=== PATIENT | male | born 1955 | race African-American/Black ===

== ENCOUNTER 2019-12-29 16:26 | Inpatient (IN) | payer OTHER, MEDICARE ==
[~2019-12-29] VITALS: Ht 177.8 cm; Wt 67.1 kg
--- NOTE | 2019-12-29 | NUR ---
Admitted a 64 yr old male from [facility] with admitting diagnosis of acute CVA. History: HTN, hyponatremia, depression. Patient arrived on the unit at 2200 by vitarpatricia. Condition stable. AAO x4 No acute distress or SOB was noted. vitals signs WNL on room air. Notified DR. Cline for admitting orders and DR. Hopson for medication reconciliation. Completed the admission work including taking history, initial assessment, physical assessment, process plan. Skin intact. Right arm weakness noted and right leg WNL. Needs attended. Continent of bowel and bladder. Assisted patient with front wheel walker to bathroom, steady gait noted. BM noted this shift,Diarrhea. Fall precautions maintained. Siderails up x2 for safety, bed in locked and low position, bed alarm on. Educated patient to use the call light. Call light and frequently using items within reach. Continue to monitor.
[2019-12-29] MEDS ORDERED: Z GUARD REMEDY PASTE 57 GM TUBE TOP PRN (22:15)
[2019-12-29] MEDS ORDERED: ACET160E61 PO (22:42)
[2019-12-29] MEDS ORDERED: ASPI-605 PO (22:43)
[2019-12-29] MEDS ORDERED: ATOR20TA PO (22:44)
[2019-12-29] MEDS ORDERED: BENZ0.5T43 PO (22:46)
[2019-12-29] MEDS ORDERED: HYDR-4075 PO (22:47)
[2019-12-29] MEDS ORDERED: LORA2ORA5 PO (22:49)
[2019-12-29] MEDS ORDERED: MAG30ORA2 PO (22:51)
[2019-12-29] MEDS ORDERED: MAGN400O6 PO (22:52)
[2019-12-29] MEDS ORDERED: NUT.237L67 PO (22:54)
[2019-12-29] MEDS ORDERED: PANT40TA4 PO (22:55)
[2019-12-29] MEDS ORDERED: RISP0.5T20 PO (22:56)
[2019-12-29 23:17] VITALS: BP 145/95
[2019-12-29] MEDS ORDERED: hydrALAZINE HCL 10 MG TABLET PO PRN (23:30)
[2019-12-30 04:35] VITALS: BP 156/91
--- NOTE | 2019-12-30 06:49 | NUR ---
Patient slept well, no significant event to report. No signs of distress, patient denies any discomfort at this time. Needs attended to promptly. Provided snack and drinks as per request Patient is continent, using the urinal.No complaints presented during shift. Fall precautions and safety measure maintained. Call stoddard within reach, bed alarm on. Will endorse report to next shift. Continue plan of care.
[2019-12-30 08:00] VITALS: BP 127/94
[2019-12-30] MEDS: MAGNESIUM HYDROXIDE 30 ML LIQUID UDC PO SCH ×2 (09:20→20:22)
[2019-12-30] MEDS: risperiDONE 0.5 MG TABLET PO SCH ×2 (09:20→16:23)
[2019-12-30] MEDS: ASPIRIN EC 81 MG TABLET.DR PO SCH (09:21)
[2019-12-30] MEDS: BENZTROPINE MESYLATE 0.5 MG TABLET PO SCH ×2 (09:21→16:23)
[2019-12-30] MEDS: NEPRO (VANILLA) 237 ML CAN PO SCH ×2 (09:22→16:24)
[2019-12-30] MEDS: PANTOPRAZOLE SODIUM 40 MG TABLET.DR PO SCH (09:25)
[2019-12-30] MEDS ORDERED: LORAZEPAM 0.5 MG TABLET PO PRN ×2 (13:15→13:27)
[2019-12-30 16:00] VITALS: BP 132/87
--- NOTE | 2019-12-30 16:02 | NUR ---
patient is calm comfortable, no distress noted, participated in PT, OT services, tolerated well, independent in positioning, uses bathroom privileges, needs attended timely
[2019-12-30] MEDS: ATORVASTATIN 20 MG TABLET PO SCH (20:23)
[2019-12-30 20:57] VITALS: BP 127/80
[2019-12-31 05:40] VITALS: BP 122/86
[2019-12-31] MEDS: PANTOPRAZOLE SODIUM 40 MG TABLET.DR PO SCH (06:30)
[2019-12-31 06:41] LABS: BASOPHILS % (AUTO) 0.5 % (0.0-2.0); EOSINOPHILS # (AUTO) 0.2 K/uL (0.0-0.7); EOSINOPHILS % (AUTO) 2.3 % (0.0-7.0); HEMATOCRIT 27.7 % (36.7-47.1); HEMOGLOBIN 9.3 g/dL (12.5-16.3); LYMPHOCYTES # (AUTO) 1.9 K/uL (20.0-40.0); LYMPHOCYTES % (AUTO) 23.5 % (20.5-51.5); MEAN CORPUSCULAR HGB CONC 34 g/dL (32.5-36.3); MEAN CORPUSCULAR VOLUME 80.7 fL (73.0-96.2); MONOCYTES % (AUTO) 12.6 % (0.0-11.0); NEUTROPHILS # (AUTO) 4.9 K/uL (1.8-8.9); NEUTROPHILS % (AUTO) 61.1 % (38.5-71.5); PLATELET COUNT (AUTO) 243 K/uL (152-348); RED BLOOD CELL COUNT(AUTO) 3.42 MIL/uL (4.06-5.63)
[2019-12-31 06:53] LABS: CREATININE 1.2 mg/dL (0.6-1.3); PHOSPHOROUS 3.2 mg/dL (2.5-4.9); POTASSIUM 3.4 mmol/L (3.5-5.1)
[2019-12-31 07:30] VITALS: BP 132/93
[2019-12-31] MEDS ORDERED: POTASSIUM CHLORIDE 20 MEQ TAB.PRT.SR PO ONE (08:00)
[2019-12-31] MEDS: MAGNESIUM HYDROXIDE 30 ML LIQUID UDC PO SCH ×2 (09:09→21:17)
[2019-12-31] MEDS: ASPIRIN EC 81 MG TABLET.DR PO SCH (09:10)
[2019-12-31] MEDS: risperiDONE 0.5 MG TABLET PO SCH ×2 (09:10→16:53)
[2019-12-31] MEDS: BENZTROPINE MESYLATE 0.5 MG TABLET PO SCH ×2 (09:10→16:53)
[2019-12-31] MEDS: NEPRO (VANILLA) 237 ML CAN PO SCH ×2 (09:15→16:53)
[2019-12-31 16:30] VITALS: BP 118/86
[2019-12-31 20:58] VITALS: BP 128/81
[2019-12-31] MEDS: ATORVASTATIN 20 MG TABLET PO SCH (21:17)
--- NOTE | 2020-01-01 04:19 | NUR ---
PATIENT ALERT ORIENTED, NO COMPLAIN OF PAIN. PATIENT HAS NO COMPLAIN OF PAIN AT THIS TIME. PATIENT CONTINENT OF BLADDER, USES URINAL FOR ELIMINATIONS, PATIENT CALL LIGHT WITHIN REACH.
[2020-01-01 05:15] VITALS: BP 143/85
[2020-01-01] MEDS: PANTOPRAZOLE SODIUM 40 MG TABLET.DR PO SCH (06:20)
[2020-01-01 08:46] VITALS: BP 150/96
[2020-01-01] MEDS: ASPIRIN EC 81 MG TABLET.DR PO SCH (09:51)
[2020-01-01] MEDS: BENZTROPINE MESYLATE 0.5 MG TABLET PO SCH ×2 (09:51→16:24)
[2020-01-01] MEDS: NEPRO (VANILLA) 237 ML CAN PO SCH ×2 (09:52→16:25)
[2020-01-01] MEDS: risperiDONE 0.5 MG TABLET PO SCH ×2 (09:52→16:24)
[2020-01-01] MEDS: MAGNESIUM HYDROXIDE 30 ML LIQUID UDC PO SCH ×2 (09:52→20:59)
--- NOTE | 2020-01-01 12:54 | NUR ---
INTERDISCIPLINARY TEAM CONFERENCE
--- NOTE | 2020-01-01 13:02 | NUR ---
INDIVIDUALIZED PLAN OF CARE
[2020-01-01 15:33] VITALS: BP 115/78
[2020-01-01 20:37] VITALS: BP 126/81
[2020-01-01] MEDS: ATORVASTATIN 20 MG TABLET PO SCH (20:59)
--- NOTE | 2020-01-02 05:12 | NUR ---
Patient slept well, no significant event to report. No signs of distress, patient denies any discomfort at this time. Needs attended to promptly. Provided snack and drinks as per request. Provided prune juice to alleviate constipation. all due medication was administered. Patient is continent, using the urinal. No complaints presented during shift. Fall precautions and safety measure maintained. Call stoddard within reach, bed alarm on. Will endorse report to next shift. Continue plan of care.
[2020-01-02 06:10] VITALS: BP 128/86
[2020-01-02] MEDS: PANTOPRAZOLE SODIUM 40 MG TABLET.DR PO SCH (06:45)
[2020-01-02 08:00] VITALS: BP 98/72
[2020-01-02] MEDS: risperiDONE 0.5 MG TABLET PO SCH ×2 (08:36→16:43)
[2020-01-02] MEDS: ASPIRIN EC 81 MG TABLET.DR PO SCH (08:36)
[2020-01-02] MEDS: BENZTROPINE MESYLATE 0.5 MG TABLET PO SCH ×2 (08:36→16:44)
[2020-01-02] MEDS: NEPRO (VANILLA) 237 ML CAN PO SCH ×2 (08:37→16:44)
[2020-01-02] MEDS: MAGNESIUM HYDROXIDE 30 ML LIQUID UDC PO SCH ×2 (08:37→21:15)
[2020-01-02 16:25] VITALS: BP 118/74
[2020-01-02 19:50] VITALS: BP 114/70
[2020-01-02] MEDS: ATORVASTATIN 20 MG TABLET PO SCH (21:15)
--- NOTE | 2020-01-03 05:52 | NUR ---
Patient AxoX4 slept well, no significant event to report. new order to collect stool. No signs of distress, patient denies any discomfort at this time. Needs attended to promptly. Provided snack and drinks as per request. Provided prune juice to alleviate constipation. all due medication was administered. Patient is continent, using the urinal and BRP. No complaints presented during shift. Fall precautions and safety measure maintained. Call stoddard within reach, bed alarm on. Will endorse report to next shift. Continue plan of care.
[2020-01-03 06:17] VITALS: BP 112/66
[2020-01-03] MEDS: PANTOPRAZOLE SODIUM 40 MG TABLET.DR PO SCH (06:20)
[2020-01-03 06:35] LABS: BASOPHILS % (AUTO) 0.5 % (0.0-2.0); EOSINOPHILS # (AUTO) 0.2 K/uL (0.0-0.7); EOSINOPHILS % (AUTO) 3.2 % (0.0-7.0); HEMATOCRIT 27.8 % (36.7-47.1); HEMOGLOBIN 9.4 g/dL (12.5-16.3); LYMPHOCYTES # (AUTO) 1.7 K/uL (20.0-40.0); LYMPHOCYTES % (AUTO) 25.7 % (20.5-51.5); MEAN CORPUSCULAR HEMOGLOBIN 27.3 uug (23.8-33.4); MEAN CORPUSCULAR HGB CONC 34 g/dL (32.5-36.3); MEAN CORPUSCULAR VOLUME 81.1 fL (73.0-96.2); MONOCYTES # (AUTO) 1.2 K/uL (2.0-10.0); MONOCYTES % (AUTO) 18.6 % (0.0-11.0); NEUTROPHILS # (AUTO) 3.3 K/uL (1.8-8.9); PLATELET COUNT (AUTO) 341 K/uL (152-348); RED BLOOD CELL COUNT(AUTO) 3.42 MIL/uL (4.06-5.63); WHITE BLOOD COUNT (AUTO) 6.4 K/uL (3.6-10.2)
--- NOTE | 2020-01-03 07:00 | NUR ---
stool sample collected and sent to Lab
--- NOTE | 2020-01-03 07:04 | NUR ---
Notified that temperature was 100.8, rechecked and temperature 98.6
[2020-01-03 07:19] LABS: BILIRUBIN,TOTAL 0.2 mg/dL (0.2-1.0); CREATININE 1.4 mg/dL (0.6-1.3); MAGNESIUM 2.6 mg/dL (1.8-2.4); PHOSPHOROUS 2.6 mg/dL (2.5-4.9); TOTAL PROTEIN, SERUM 6.5 g/dL (6.4-8.2)
[2020-01-03 08:00] VITALS: BP 132/79
[2020-01-03 08:23] LABS: *OCCULT BLOOD STOOL NEGATIVE (NEGATIVE)
[2020-01-03] MEDS: MAGNESIUM HYDROXIDE 30 ML LIQUID UDC PO SCH ×2 (08:44→20:28)
[2020-01-03] MEDS: risperiDONE 0.5 MG TABLET PO SCH ×2 (08:44→16:30)
[2020-01-03] MEDS: BENZTROPINE MESYLATE 0.5 MG TABLET PO SCH ×2 (08:44→16:31)
[2020-01-03] MEDS: ASPIRIN EC 81 MG TABLET.DR PO SCH (08:44)
[2020-01-03] MEDS: NEPRO (VANILLA) 237 ML CAN PO SCH ×2 (08:48→16:31)
[2020-01-03 11:03] LABS: BAND % (MANUAL) 2 % (0-10); EOSINOPHILS % (MANUAL) 2 % (0-8); LYMPHOCYTES % (MANUAL) 29 % (20-40); MONOCYTES % (MANUAL) 24 % (2-10); NEUTROPHILS % (MANUAL) 43 % (42-75)
[2020-01-03] MEDS: FERROUS SULFATE 325 MG TABEC PO SCH ×2 (13:50→20:28)
[2020-01-03 15:59] VITALS: BP 94/73
[2020-01-03] MEDS: ATORVASTATIN 20 MG TABLET PO SCH (20:28)
[2020-01-03 20:35] VITALS: BP 108/70
--- NOTE | 2020-01-03 21:00 | NUR ---
Patient temperature 100.4. Rechecked after cooling measure 100.8. Notified received verbal order of Tylenol PO 650 mg PRN.
--- NOTE | 2020-01-03 21:45 | NUR ---
temperature rechecked 97.7
[2020-01-03] MEDS ORDERED: ACETAMINOPHEN 325 MG TABLET PO PRN (22:00)
--- NOTE | 2020-01-04 05:30 | NUR ---
Patient slept well, no significant event to report. No signs of distress, patient denies any discomfort at this time. Needs attended to promptly. Provided snack and drinks as per request Patient is continent,BRP. patient walked up and down the hallway. No complaints presented during shift. Fall precautions and safety measure maintained. Call stoddard within reach, bed alarm on. Will endorse report to next shift. Continue plan of care.
[2020-01-04 05:34] VITALS: BP 121/82
[2020-01-04] MEDS: PANTOPRAZOLE SODIUM 40 MG TABLET.DR PO SCH (06:16)
[2020-01-04 08:53] VITALS: BP 109/68
[2020-01-04] MEDS: ASPIRIN EC 81 MG TABLET.DR PO SCH (08:54)
[2020-01-04] MEDS: BENZTROPINE MESYLATE 0.5 MG TABLET PO SCH ×2 (08:54→17:42)
[2020-01-04] MEDS: FERROUS SULFATE 325 MG TABEC PO SCH ×2 (08:54→20:46)
[2020-01-04] MEDS: risperiDONE 0.5 MG TABLET PO SCH ×2 (08:55→17:42)
[2020-01-04] MEDS: MAGNESIUM HYDROXIDE 30 ML LIQUID UDC PO SCH ×2 (09:00→20:46)
[2020-01-04] MEDS: NEPRO (VANILLA) 237 ML CAN PO SCH ×2 (09:07→17:43)
[2020-01-04 13:38] LABS: *BILIRUBIN,URIN NEGATIVE (NEGATIVE); *BLOOD, URINE NEGATIVE (NEGATIVE); *CLARITY,URINE CLEAR (CLEAR); *COLOR,URINE YELLOW (YELLOW); *KETONES,URINE NEGATIVE (NEGATIVE); *UROBILINOGEN,URINE 0.2 E.U./dl (NORMAL); LEUKOCYTE ESTERASE ,URINE NEGATIVE (NEGATIVE); NITRITE, URINE NEGATIVE (NEGATIVE); PH,URINE 7.5 (5.0-8.0); UGLUCOSE NEGATIVE (NEGATIVE)
[2020-01-04 16:06] VITALS: BP 84/58
--- NOTE | 2020-01-04 18:25 | NUR ---
Patient alert x 4, compliant with medications tolerated well, no distress noted, no c/o of pain or discomfort,participated with therapy,ambulatory, safety measures rendered at all times, call light with in reach , keep clean and dry, will continue to monitor.
--- NOTE | 2020-01-04 19:10 | NUR ---
Patient received in bed. Patient is awake and denies any acute distress or pain at this time. Patient is on room air and saturating WNL. Patient's vitals stable. Safety measures in place. Bed low and locked in position. Call light within reach. Will continue with the plan of care
[2020-01-04 20:00] VITALS: BP 119/69
[2020-01-04] MEDS: ATORVASTATIN 20 MG TABLET PO SCH (20:46)
[2020-01-05 04:00] VITALS: BP 103/63
[2020-01-05] MEDS: PANTOPRAZOLE SODIUM 40 MG TABLET.DR PO SCH (06:39)
--- NOTE | 2020-01-05 06:42 | NUR ---
Patient slept through the night. Patient is awake and denies any acute distress or pain. Vitals WNL. Prescribed medications given, patient tolerated. Comfort care and needs attended. Safety measures in place. Bed low and locked in position. Call light within reach. Will endorse to the oncoming nurse accordingly.
[2020-01-05 06:47] LABS: CREATININE 1.5 mg/dL (0.6-1.3); MAGNESIUM 2.4 mg/dL (1.8-2.4); POTASSIUM 4.8 mmol/L (3.5-5.1)
[2020-01-05 07:03] LABS: BASOPHILS % (AUTO) 0.5 % (0.0-2.0); EOSINOPHILS # (AUTO) 0.2 K/uL (0.0-0.7); EOSINOPHILS % (AUTO) 3.5 % (0.0-7.0); HEMATOCRIT 27.1 % (36.7-47.1); LYMPHOCYTES # (AUTO) 2.2 K/uL (20.0-40.0); LYMPHOCYTES % (AUTO) 31.7 % (20.5-51.5); MEAN CORPUSCULAR HEMOGLOBIN 27.3 uug (23.8-33.4); MEAN CORPUSCULAR HGB CONC 33 g/dL (32.5-36.3); MONOCYTES # (AUTO) 0.8 K/uL (2.0-10.0); NEUTROPHILS # (AUTO) 3.6 K/uL (1.8-8.9); NEUTROPHILS % (AUTO) 53.3 % (38.5-71.5); PLATELET COUNT (AUTO) 351 K/uL (152-348); WHITE BLOOD COUNT (AUTO) 6.8 K/uL (3.6-10.2)
[2020-01-05 08:00] VITALS: BP 125/74
[2020-01-05] MEDS: ASPIRIN EC 81 MG TABLET.DR PO SCH (10:15)
[2020-01-05] MEDS: MAGNESIUM HYDROXIDE 30 ML LIQUID UDC PO SCH ×2 (10:15→20:42)
[2020-01-05] MEDS: BENZTROPINE MESYLATE 0.5 MG TABLET PO SCH ×2 (10:15→18:07)
[2020-01-05] MEDS: FERROUS SULFATE 325 MG TABEC PO SCH ×2 (10:15→20:42)
[2020-01-05] MEDS: risperiDONE 0.5 MG TABLET PO SCH ×2 (10:15→18:07)
[2020-01-05] MEDS: NEPRO (VANILLA) 237 ML CAN PO SCH ×2 (10:16→18:08)
[2020-01-05 14:07] VITALS: BP 110/68
[2020-01-05 15:15] LABS: *BILIRUBIN,URIN NEGATIVE (NEGATIVE); *BLOOD, URINE NEGATIVE (NEGATIVE); *CLARITY,URINE CLEAR (CLEAR); *COLOR,URINE YELLOW (YELLOW); *KETONES,URINE NEGATIVE (NEGATIVE); *UROBILINOGEN,URINE 0.2 E.U./dl (NORMAL); LEUKOCYTE ESTERASE ,URINE NEGATIVE (NEGATIVE); NITRITE, URINE NEGATIVE (NEGATIVE); PH,URINE 7.5 (5.0-8.0); UGLUCOSE NEGATIVE (NEGATIVE)
[2020-01-05 15:24] LABS: *CREATININE,URINE 34.9 mg/dL (30-125); *URINE TOTAL PROTEIN RANDOM < 6.0 mg/dL (<150/24HR)
--- NOTE | 2020-01-05 18:15 | NUR ---
Patient physical therapy,OT, ST session tolerated well. Patient ambulates with good balance and coordination through out hallway.Patient had BM today.
[2020-01-05 20:06] VITALS: BP 120/72
[2020-01-05] MEDS: ATORVASTATIN 20 MG TABLET PO SCH (20:42)
--- NOTE | 2020-01-06 04:52 | NUR ---
Patient slept well, no significant event to report. No signs of distress, patient denies any discomfort at this time. Needs attended to promptly. Provided snack and drinks as per request. Patient is continent,BRP. patient walked up and down the hallway. No complaints presented during shift. Fall precautions and safety measure maintained. Call stoddard within reach, bed alarm on. Will endorse report to next shift. Continue plan of care.
[2020-01-06 06:04] LABS: BASOPHILS % (AUTO) 0.3 % (0.0-2.0); EOSINOPHILS # (AUTO) 0.2 K/uL (0.0-0.7); HEMOGLOBIN 8.8 g/dL (12.5-16.3); LYMPHOCYTES % (AUTO) 27.9 % (20.5-51.5); MEAN CORPUSCULAR HEMOGLOBIN 27.6 uug (23.8-33.4); MEAN CORPUSCULAR HGB CONC 34 g/dL (32.5-36.3); MEAN CORPUSCULAR VOLUME 81.6 fL (73.0-96.2); MONOCYTES # (AUTO) 0.7 K/uL (2.0-10.0); MONOCYTES % (AUTO) 9.3 % (0.0-11.0); NEUTROPHILS # (AUTO) 4.3 K/uL (1.8-8.9); NEUTROPHILS % (AUTO) 59.5 % (38.5-71.5); PLATELET COUNT (AUTO) 357 K/uL (152-348); RED BLOOD CELL COUNT(AUTO) 3.19 MIL/uL (4.06-5.63); WHITE BLOOD COUNT (AUTO) 7.2 K/uL (3.6-10.2)
[2020-01-06] MEDS: PANTOPRAZOLE SODIUM 40 MG TABLET.DR PO SCH (06:14)
[2020-01-06 06:20] VITALS: BP 115/82
[2020-01-06 06:26] LABS: BILIRUBIN,TOTAL 0.2 mg/dL (0.2-1.0); CREATININE 1.4 mg/dL (0.6-1.3); MAGNESIUM 2.5 mg/dL (1.8-2.4); PHOSPHOROUS 4.2 mg/dL (2.5-4.9); POTASSIUM 4.9 mmol/L (3.5-5.1); TOTAL PROTEIN, SERUM 6.6 g/dL (6.4-8.2)
[2020-01-06 07:56] VITALS: BP 108/71
[2020-01-06] MEDS: FERROUS SULFATE 325 MG TABEC PO SCH ×2 (08:46→20:38)
[2020-01-06] MEDS: ASPIRIN EC 81 MG TABLET.DR PO SCH (08:46)
[2020-01-06] MEDS: risperiDONE 0.5 MG TABLET PO SCH ×2 (08:46→18:03)
[2020-01-06] MEDS: BENZTROPINE MESYLATE 0.5 MG TABLET PO SCH ×2 (08:46→18:03)
[2020-01-06] MEDS: MAGNESIUM HYDROXIDE 30 ML LIQUID UDC PO SCH ×2 (08:47→20:38)
[2020-01-06] MEDS: NEPRO (VANILLA) 237 ML CAN PO SCH ×2 (08:48→18:03)
--- NOTE | 2020-01-06 09:50 | NUR ---
Received patient in room awake. Patient is AAO x 4, able to express needs. NO acute distress or SOB noted. Vital signs stable. Due morning meds administered as ordered. Patient also administered Tylenol 650mg 2 tabs for pain before PT. Patient is compliant with care. Independent for most care and adls. Ambulatory and BRP. All other needs attended, safety measures in place, call light left within easy reach and will continue with care.
[2020-01-06 16:09] VITALS: BP 103/70
--- NOTE | 2020-01-06 18:19 | NUR ---
Patient in bed resting no acute distress or SOB noted. Denies any pain at this time. Due evening meds administered and tolerated well. Safety measures in place and will continue with care.
[2020-01-06 19:48] VITALS: BP 99/66
[2020-01-06] MEDS: ATORVASTATIN 20 MG TABLET PO SCH (20:38)
[2020-01-07 04:42] VITALS: BP 118/73
[2020-01-07] MEDS: PANTOPRAZOLE SODIUM 40 MG TABLET.DR PO SCH (06:18)
[2020-01-07 07:54] VITALS: BP 129/87
[2020-01-07] MEDS: MAGNESIUM HYDROXIDE 30 ML LIQUID UDC PO SCH ×2 (09:00→20:15)
[2020-01-07] MEDS: BENZTROPINE MESYLATE 0.5 MG TABLET PO SCH ×2 (09:25→17:31)
[2020-01-07] MEDS: risperiDONE 0.5 MG TABLET PO SCH ×2 (09:25→17:31)
[2020-01-07] MEDS: FERROUS SULFATE 325 MG TABEC PO SCH ×2 (09:25→20:15)
[2020-01-07] MEDS: ASPIRIN EC 81 MG TABLET.DR PO SCH (09:25)
[2020-01-07] MEDS: NEPRO (VANILLA) 237 ML CAN PO SCH ×2 (09:25→17:32)
[2020-01-07 15:27] VITALS: BP 118/90
--- NOTE | 2020-01-07 19:30 | NUR ---
RECEIVED PT AWAKE, ALERT AND ORIENTEDX4. PT IN NO ACUTE DISTRESS. PT AMBULATORY WITH STEADY GAIT.PT SAFETY AND COMFORT PROVIDED. WILL CONTINUE TO MONITOR.
[2020-01-07 20:00] VITALS: BP_SYST 113; BP_SYST 143; BP_DIAS 81; BP_DIAS 86
[2020-01-07] MEDS: ATORVASTATIN 20 MG TABLET PO SCH (20:15)
[2020-01-08 04:00] VITALS: BP 132/79
--- NOTE | 2020-01-08 06:23 | NUR ---
PT SLEPT INTERMITTENTLY. PT IN NO ACUTE DISTRESS. PRESCRIBED MEDICATION GIVEN AND PT TOLERATED IT WELL. SAFETY AND COMFORT PROVIDED. WILL ENDORSE TO INCOMING NURSE FOR CONTINUITY OF CARE.
[2020-01-08] MEDS: PANTOPRAZOLE SODIUM 40 MG TABLET.DR PO SCH (06:32)
[2020-01-08] MEDS: FERROUS SULFATE 325 MG TABEC PO SCH ×2 (08:07→20:34)
[2020-01-08] MEDS: MAGNESIUM HYDROXIDE 30 ML LIQUID UDC PO SCH ×2 (08:07→20:34)
[2020-01-08] MEDS: risperiDONE 0.5 MG TABLET PO SCH ×2 (08:07→17:09)
[2020-01-08] MEDS: ASPIRIN EC 81 MG TABLET.DR PO SCH (08:07)
[2020-01-08] MEDS: NEPRO (VANILLA) 237 ML CAN PO SCH ×2 (08:07→17:00)
[2020-01-08] MEDS: BENZTROPINE MESYLATE 0.5 MG TABLET PO SCH ×2 (08:07→17:09)
[2020-01-08 08:57] VITALS: BP 121/82
[2020-01-08 16:07] VITALS: BP 98/68
--- NOTE | 2020-01-08 19:35 | NUR ---
Sleeping during initial rounds. No respiratory distress noted. Denies pain/discomforts at this time. Safety measures and fall prevention maintained.Continue care as planned.
[2020-01-08 20:31] VITALS: BP 153/88
[2020-01-08] MEDS: ATORVASTATIN 20 MG TABLET PO SCH (20:34)
[2020-01-09 04:21] VITALS: BP 121/90
--- NOTE | 2020-01-09 05:29 | NUR ---
Shift End report: Slept well. No complaint presented all night. All needs attended and met. No significant changes reported. Continue current rehab plan of care.
[2020-01-09 06:23] LABS: BASOPHILS % (AUTO) 0.6 % (0.0-2.0); EOSINOPHILS # (AUTO) 0.2 K/uL (0.0-0.7); EOSINOPHILS % (AUTO) 3.4 % (0.0-7.0); HEMATOCRIT 26.1 % (36.7-47.1); HEMOGLOBIN 8.7 g/dL (12.5-16.3); LYMPHOCYTES # (AUTO) 2.3 K/uL (20.0-40.0); MEAN CORPUSCULAR HEMOGLOBIN 27.4 uug (23.8-33.4); MEAN CORPUSCULAR HGB CONC 34 g/dL (32.5-36.3); MEAN CORPUSCULAR VOLUME 81.7 fL (73.0-96.2); MONOCYTES # (AUTO) 0.6 K/uL (2.0-10.0); MONOCYTES % (AUTO) 8.3 % (0.0-11.0); NEUTROPHILS # (AUTO) 3.5 K/uL (1.8-8.9); NEUTROPHILS % (AUTO) 52.7 % (38.5-71.5); PLATELET COUNT (AUTO) 376 K/uL (152-348); RED BLOOD CELL COUNT(AUTO) 3.19 MIL/uL (4.06-5.63); WHITE BLOOD COUNT (AUTO) 6.6 K/uL (3.6-10.2)
[2020-01-09] MEDS: PANTOPRAZOLE SODIUM 40 MG TABLET.DR PO SCH (06:27)
[2020-01-09 06:31] LABS: CREATININE 1.4 mg/dL (0.6-1.3); MAGNESIUM 2.2 mg/dL (1.8-2.4); PHOSPHOROUS 3.3 mg/dL (2.5-4.9); POTASSIUM 4.8 mmol/L (3.5-5.1)
[2020-01-09 08:00] VITALS: BP 127/93
--- NOTE | 2020-01-09 08:00 | NUR ---
RECEIVED PATIENT IN BED AWAKE ALERT AND ORIENTED DENIES PAIN OR DISCOMFORTS AT THIS TIME.CALL LIGHTS AND PERSONAL BELONGINGS ARE WITHIN EASY REACH MADE COMFORTABLE WILL CONTINUE TO OBSERVE.
[2020-01-09] MEDS: ASPIRIN EC 81 MG TABLET.DR PO SCH (09:19)
[2020-01-09] MEDS: BENZTROPINE MESYLATE 0.5 MG TABLET PO SCH ×2 (09:19→16:24)
[2020-01-09] MEDS: risperiDONE 0.5 MG TABLET PO SCH ×2 (09:19→16:24)
[2020-01-09] MEDS: FERROUS SULFATE 325 MG TABEC PO SCH ×2 (09:19→20:11)
[2020-01-09] MEDS: MAGNESIUM HYDROXIDE 30 ML LIQUID UDC PO SCH ×2 (09:25→20:11)
[2020-01-09] MEDS: NEPRO (VANILLA) 237 ML CAN PO SCH ×2 (09:25→16:25)
--- NOTE | 2020-01-09 10:48 | NUR ---
INTERDISCIPLINARY TEAM CONFERENCE
--- NOTE | 2020-01-09 15:04 | NUR ---
PATIENT CONTINUE ON PHYSICAL THERAPEUTIC EXERCISES ORDERED WITH FAIR ENDURANCE WILL CONTINUE TO OBSERVE.
[2020-01-09 16:08] VITALS: BP 123/76
[2020-01-09 19:54] VITALS: BP 120/78
[2020-01-09] MEDS: ATORVASTATIN 20 MG TABLET PO SCH (20:11)
--- NOTE | 2020-01-09 20:45 | NUR ---
Received pt resting in bed. AAO x4. No acute distress noted. Denies pain/ discomfort. Due meds given as ordered. Safety measures maintained. Call light and personal items within reach. Will continue to monitor.
[2020-01-10 05:26] VITALS: BP 127/74
[2020-01-10] MEDS: PANTOPRAZOLE SODIUM 40 MG TABLET.DR PO SCH (06:30)
[2020-01-10 08:00] VITALS: BP 124/70
[2020-01-10] MEDS: ASPIRIN EC 81 MG TABLET.DR PO SCH (08:50)
[2020-01-10] MEDS: FERROUS SULFATE 325 MG TABEC PO SCH ×2 (08:50→20:02)
[2020-01-10] MEDS: BENZTROPINE MESYLATE 0.5 MG TABLET PO SCH ×2 (08:50→16:18)
[2020-01-10] MEDS: MAGNESIUM HYDROXIDE 30 ML LIQUID UDC PO SCH ×2 (08:50→20:02)
[2020-01-10] MEDS: risperiDONE 0.5 MG TABLET PO SCH ×2 (08:50→16:18)
[2020-01-10] MEDS: NEPRO (VANILLA) 237 ML CAN PO SCH ×2 (08:55→17:11)
--- NOTE | 2020-01-10 11:26 | NUR ---
Patient alert oriented, seen by PT tolerate well. Patient has no complain of pain at this time, cont to monitor.
--- NOTE | 2020-01-10 12:00 | NUR ---
PATIENT REASSIGNMENT RECEIVED THIS PATIENT FROM THE OUT GOING NURSE PATIENT IS AWAKE ALERT AND ORIENTED LUNCH SERVED AND HE IS EATING DENIES PAIN OR DISCOMFORTS AT THIS TIME ASSISTED NEEDED MADE COMFORTABLE WILL CONTINUE TO OBSERVE.
--- NOTE | 2020-01-10 15:07 | NUR ---
PATIENT SEEN AND EXAMINED BY DR WYATT WITH NEW ORDERS AND NOTED.PATIENT INSTRUCTED ON NEED FOR STOOL SPECIMEN AND HE EXPRESSED UNDERSTANDING
[2020-01-10 16:00] VITALS: BP 123/74
--- NOTE | 2020-01-10 18:08 | NUR ---
RESTING WITH GOOD APPETITE DENIES DISCOMFORTS STILL NO STOOL SPECIMEN AT THIS TIME
[2020-01-10] MEDS: ATORVASTATIN 20 MG TABLET PO SCH (20:02)
[2020-01-10 20:17] VITALS: BP 123/69
--- NOTE | 2020-01-10 20:54 | NUR ---
Received pt sleeping comfortably in bed. Aroused easily to verbal stimuli. Alert and oriented x4. No acute distress noted. Denies pain/ discomfort. Due meds given as ordered. Safety measures maintained. Call light and personal items within reach. Will continue to monitor.
[2020-01-11 06:22] LABS: BASOPHILS % (AUTO) 0.5 % (0.0-2.0); EOSINOPHILS # (AUTO) 0.3 K/uL (0.0-0.7); EOSINOPHILS % (AUTO) 3.6 % (0.0-7.0); HEMATOCRIT 28.6 % (36.7-47.1); HEMOGLOBIN 9.6 g/dL (12.5-16.3); LYMPHOCYTES # (AUTO) 2.8 K/uL (20.0-40.0); LYMPHOCYTES % (AUTO) 33.6 % (20.5-51.5); MEAN CORPUSCULAR HEMOGLOBIN 27.6 uug (23.8-33.4); MEAN CORPUSCULAR HGB CONC 34 g/dL (32.5-36.3); MONOCYTES # (AUTO) 0.7 K/uL (2.0-10.0); MONOCYTES % (AUTO) 8.7 % (0.0-11.0); NEUTROPHILS # (AUTO) 4.5 K/uL (1.8-8.9); NEUTROPHILS % (AUTO) 53.6 % (38.5-71.5); PLATELET COUNT (AUTO) 414 K/uL (152-348); RED BLOOD CELL COUNT(AUTO) 3.49 MIL/uL (4.06-5.63); WHITE BLOOD COUNT (AUTO) 8.4 K/uL (3.6-10.2)
[2020-01-11] MEDS: PANTOPRAZOLE SODIUM 40 MG TABLET.DR PO SCH (06:31)
[2020-01-11 06:39] VITALS: BP 120/76
[2020-01-11 06:42] LABS: THYROID STIMULATING HORMONE 1.639 mIU/mL (0.358-3.740)
[2020-01-11 07:12] LABS: BILIRUBIN,TOTAL 0.1 mg/dL (0.2-1.0); CREATININE 1.5 mg/dL (0.6-1.3); MAGNESIUM 2.4 mg/dL (1.8-2.4); PHOSPHOROUS 3.1 mg/dL (2.5-4.9); POTASSIUM 4.9 mmol/L (3.5-5.1); TOTAL PROTEIN, SERUM 7.1 g/dL (6.4-8.2)
[2020-01-11 08:00] VITALS: BP 140/80
[2020-01-11] MEDS: risperiDONE 0.5 MG TABLET PO SCH ×2 (08:55→17:06)
[2020-01-11] MEDS: MAGNESIUM HYDROXIDE 30 ML LIQUID UDC PO SCH ×2 (08:55→21:37)
[2020-01-11] MEDS: FERROUS SULFATE 325 MG TABEC PO SCH ×2 (08:55→21:37)
[2020-01-11] MEDS: ASPIRIN EC 81 MG TABLET.DR PO SCH (08:55)
[2020-01-11] MEDS: BENZTROPINE MESYLATE 0.5 MG TABLET PO SCH ×2 (08:55→17:05)
[2020-01-11] MEDS: NEPRO (VANILLA) 237 ML CAN PO SCH ×2 (08:56→17:06)
--- NOTE | 2020-01-11 11:00 | NUR ---
Patient is AAO X 4, able to express needs. No acute distress or any SOB noted. Vital signs stable. NO c/o pain at this time. Due meds administered as ordered and scheduled and tolerated well. Patient on PT/OT therapy. Needs attended, safety measures in place and will continue with care.
[2020-01-11 16:00] VITALS: BP 136/81
--- NOTE | 2020-01-11 19:46 | NUR ---
No new change of condition noted. NO SOB or any acute distress noted. Due even meds administered and tolerated well. Needs attended and met. Safety measures in place, endorsed to next shift and will continue with care.
--- NOTE | 2020-01-11 19:50 | NUR ---
Patient sleeping during initial rounds. No s/s of respiratory distress. No s/s of pain/discomforts noted. Safety measures and fall prevention maintained. Continue care as planned.
[2020-01-11 20:11] VITALS: BP 120/60
[2020-01-11] MEDS: ATORVASTATIN 20 MG TABLET PO SCH (21:37)
[2020-01-12 05:04] VITALS: BP 125/76
--- NOTE | 2020-01-12 06:17 | NUR ---
Shift End Report: Vs stable, Slept well. No complaint presented all night. All needs attended and met. No fall/injury. No s/s of hypo/hypertension. No significant event reported all night. Continue current rehab plan of care.
[2020-01-12] MEDS: PANTOPRAZOLE SODIUM 40 MG TABLET.DR PO SCH (06:39)
[2020-01-12 07:30] VITALS: BP 138/90
[2020-01-12] MEDS: ASPIRIN EC 81 MG TABLET.DR PO SCH (08:23)
[2020-01-12] MEDS: MAGNESIUM HYDROXIDE 30 ML LIQUID UDC PO SCH (08:23)
[2020-01-12] MEDS: risperiDONE 0.5 MG TABLET PO SCH (08:23)
[2020-01-12] MEDS: NEPRO (VANILLA) 237 ML CAN PO SCH (08:23)
[2020-01-12] MEDS: BENZTROPINE MESYLATE 0.5 MG TABLET PO SCH (08:23)
[2020-01-12] MEDS: FERROUS SULFATE 325 MG TABEC PO SCH (08:23)
--- NOTE | 2020-01-12 11:47 | NUR ---
Received patient awake in bed in stable condition. patient for discharge to home with home health care. MD Ortiz aware. TMS done. Patient last day of therapy. tolerated well. no c/o of pain/discomfort. will continue monitor
--- NOTE | 2020-01-12 14:48 | NUR ---
Patient discharge to home around 230pm via private car with friend in stable condition. Patient medication prescription given. verbalize understanding. Fax to pharmacy. Patient discharge summary and ff up with primary physician discuss with patient. Patient laboratories and x-ray result given to patient.
== END 2020-01-12 14:30 | disposition home health service (06) | DRG 56 ==
PROVIDERS: ADMIT Physical Medicine & Rehabilitation Pain Medicine; ATTEND Physical Medicine & Rehabilitation Pain Medicine
DX: I69.354 Hemiplegia and hemiparesis following cerebral infarction affecting left non-dominant side (principal); G93.41 Metabolic encephalopathy; N17.0 Acute kidney failure with tubular necrosis; E43 Unspecified severe protein-calorie malnutrition; F32.3 Major depressive disorder, single episode, severe with psychotic features; B17.9 Acute viral hepatitis, unspecified; E87.2 Acidosis; N39.0 Urinary tract infection, site not specified; I69.318 Other symptoms and signs involving cognitive functions following cerebral infarction; D64.9 Anemia, unspecified; I10 Essential (primary) hypertension; F41.9 Anxiety disorder, unspecified; I12.9 Hypertensive chronic kidney disease with stage 1 through stage 4 chronic kidney disease, or unspecified chronic kidney disease; N18.2 Chronic kidney disease, stage 2 (mild); M62.81 Muscle weakness (generalized); D50.9 Iron deficiency anemia, unspecified; E11.22 Type 2 diabetes mellitus with diabetic chronic kidney disease; E78.5 Hyperlipidemia, unspecified; E87.6 Hypokalemia; G62.9 Polyneuropathy, unspecified; R53.81 Other malaise; R26.81 Unsteadiness on feet
CPT/HCPCS: 36415; 70030-TC; 71045; 71046; 83550; 83735; 84100; 84153; 84156; 84300; 84443; 85025; A4663

== ENCOUNTER 2020-08-31 16:26 | Inpatient (IN) | payer BC, MEDICARE, OTHER ==
[~2020-08-31] VITALS: Ht 182.9 cm; Wt 73.5 kg
[~2020-08-31 16:26] MED LIST: ACET160E61 PO; ASPI-605 PO; ATOR20TA PO; BENZ0.5T43 PO; HYDR-4075 PO; LORA2ORA5 PO; MAG30ORA2 PO; MAGN400O6 PO; NUT.237L67 PO; PANT40TA49 PO; RISP0.5T65 PO
--- NOTE | 2020-08-31 17:35 | NUR ---
Water Pump Installer assumes care, patient is eating dinner in [facility] & ready for transfer now to MHU per charge attendant Mojgan.
--- NOTE | 2020-08-31 17:37 | NUR ---
Patient was transported to MHU without incident.
[2020-08-31] MEDS ORDERED: MAG HYDROX/AL HYDROX/SIMETH 30 ML LIQUID UDC PO PRN (18:15)
[2020-08-31] MEDS ORDERED: MAGNESIUM HYDROXIDE 30 ML LIQUID UDC PO PRN (18:15)
[2020-08-31 18:16] VITALS: BP 146/86
--- NOTE | 2020-08-31 18:16 | NUR ---
Pt received from ED in a WC. Pt is on 5150 for dto. According to the hold, pt was knocking on people's doors and yelling at people that they owe him money. Upon face to face evaluation, pt is delusional and states that he has 50 million dollars in [place] and suing police. Pt is ambulatory, skin check was done. Pt is somewhat irritable when asked questions and demanding at times, but redirectable. Pt signed the paperwork, does not want to answer most questions and becomes irritable and innapropriate with when asked about his medical and psych history. Pt is making sexually inappropriate comments to the female staff and several times attempted to inappropriately touch stuff. Pt told a nurse "you should be in a porn. Do you want to make porn with me?" Pt became irritable when asked what happened to bring him to the hospital.
[2020-08-31 20:17] VITALS: BP 157/87
[2020-08-31] MEDS: ATORVASTATIN 20 MG TABLET PO SCH (20:21)
[2020-08-31] MEDS: LORAZEPAM 1 MG TABLET PO PRN (20:21)
--- NOTE | 2020-08-31 21:48 | NUR ---
Received patient walking in the hallway demanding money from the nursing staff and going into other patients rooms looking for a phone to call the police for his money. Reoriented and redirected the patient. Compliant with medications and PRN ativan. Q15 min safety checks in place.
[2020-08-31] MEDS: TEMAZEPAM 7.5 MG CAPSULE PO PRN (22:41)
[2020-08-31] MEDS ORDERED: LORAZEPAM 2 MG/1 ML VIAL IM PRN (23:00)
[2020-08-31] MEDS ORDERED: OLANZAPINE 10 MG VIAL IM ONE (23:00)
--- NOTE | 2020-08-31 23:11 | NUR ---
Patient is increasingly agitated and irritable disturbing other patients going into their rooms, attempting to strike out at staff, and name calling. Unable to redirect patient. PRN ativan ineffective. Notified Dr. Joseph of behavior at 2733. New orders for one time IM injection Zyprexa and Ativan. Administered medication and will continue to monitor patients behavior and for safety.
[2020-09-01] MEDS: PANTOPRAZOLE SODIUM 40 MG TABLET.DR PO SCH (06:23)
--- NOTE | 2020-09-01 06:45 | NUR ---
Patient slept intermittently for 2 hours. Occasional yelling and cursing outbursts. Redirected and reoriented patient providing decreased stimuli and safety measures. No s/s of acute distress noted. All needs were met and attended to.. Q15 min safety checks remain intact.
[2020-09-01] MEDS: ASPIRIN EC 81 MG TABLET.DR PO SCH (08:22)
[2020-09-01] MEDS: NEPRO (VANILLA) 237 ML CAN PO SCH ×2 (08:22→17:00)
--- NOTE | 2020-09-01 09:58 | NUR ---
SW Friend Contact: SW spoke with patient's roommate/friend Juan C Granado ([phone]) and Boogie Mcdonough ([phone]) and discussed treatment and discharge plan. Juan C will pick pack worker the patient at discharge and take him back home.
--- NOTE | 2020-09-01 09:58 | NUR ---
JT Initial Discharge Plan: Patient is currently residing at home [address] [place] [id number], lives with roommate Juan C Granado ([phone]) and Boogie Mcdonough ([phone]). Patient will return home upon discharge. JT will continue to work with patient, family, and MD to ensure a safe and proper discharge plan.
--- NOTE | 2020-09-01 10:05 | NUR ---
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 A copy of report has been placed in patient chart.
[2020-09-01] MEDS: OLANZAPINE 2.5 MG TABLET PO SCH ×2 (11:18→18:00)
--- NOTE | 2020-09-01 13:20 | NUR ---
JT Family Contact: SW spoke with patient's sisterShaista ([phone]) and discussed treatment and discharge plan.
[2020-09-01] MEDS ORDERED: HALOPERIDOL LACTATE 5 MG/1 ML VIAL IM ONE (14:00)
[2020-09-01] MEDS ORDERED: diphenhydrAMINE 50 MG/1 ML VIAL IM ONE (14:00)
[2020-09-01] MEDS ORDERED: LORAZEPAM 2 MG/1 ML VIAL IM ONE (14:00)
[2020-09-01 16:00] VITALS: BP 146/89
--- NOTE | 2020-09-01 19:41 | NUR ---
PATIENT NON COMPLIENT WITH MEDICATION AND TREATMENT PLAN. HARD TO REDIRECT. IM INJECTION GIVEN ORDERED. SAFETY PRECAUTIONS IN PLACE. WILL REPORT TO NIGHT NURSE.
[2020-09-01] MEDS: ATORVASTATIN 20 MG TABLET PO SCH (20:16)
[2020-09-01 20:21] VITALS: BP 143/96
[2020-09-01] MEDS: TEMAZEPAM 7.5 MG CAPSULE PO PRN (22:46)
[2020-09-02] MEDS: PANTOPRAZOLE SODIUM 40 MG TABLET.DR PO SCH (06:16)
--- NOTE | 2020-09-02 06:52 | NUR ---
GPS: Remain confused and disoriented. Patient slept intermittently for 4 hours after sleeping meds given. Occasional yelling and cursing outbursts. Redirected and reoriented patient providing decreased stimuli and safety measures. No s/s of acute distress noted. resting in shane chair near nursing station for safety.
[2020-09-02] MEDS: LORAZEPAM 1 MG TABLET PO PRN ×2 (06:57→20:36)
--- NOTE | 2020-09-02 07:01 | NUR ---
patient is agitated .ativan 1 mg po given for agitation.
[2020-09-02] MEDS: NEPRO (VANILLA) 237 ML CAN PO SCH ×2 (09:00→12:30)
[2020-09-02] MEDS: ASPIRIN EC 81 MG TABLET.DR PO SCH (09:00)
[2020-09-02] MEDS: OLANZAPINE 2.5 MG TABLET PO SCH ×2 (09:00→17:35)
[2020-09-02] MEDS ORDERED: LORAZEPAM 2 MG/1 ML VIAL IM ONE (11:30)
[2020-09-02] MEDS ORDERED: HALOPERIDOL LACTATE 5 MG/1 ML VIAL IM ONE (11:30)
[2020-09-02] MEDS ORDERED: diphenhydrAMINE 50 MG/1 ML VIAL IM ONE (11:30)
--- NOTE | 2020-09-02 14:41 | NUR ---
U.R. Note Faxed clinical packet to [facility] ([phone]) kenny Alejandra , assigned case reviewer. Tracking number on this case is [id number]. Will await authorization after review of clinical documentation. Addendum: 09/02/20 at 1611 by RAMEZ WATERS Correction: Clinical documentation was refaxed to fax number: [phone] kenny Alejandra at 1610. Tracking number: [id number]
[2020-09-02 20:31] VITALS: BP 140/93
[2020-09-02] MEDS: ATORVASTATIN 20 MG TABLET PO SCH (20:36)
[2020-09-02] MEDS: DIVALPROEX 500 MG TABLET.DR PO SCH (20:36)
[2020-09-02] MEDS: TEMAZEPAM 7.5 MG CAPSULE PO PRN (23:18)
--- NOTE | 2020-09-03 06:02 | NUR ---
Shift End Report: Patient agitated, uncooperative to care talking to himself at times. PRN medications given as needed. Close visual and physical supervision rendered for safety. No fall/injury. No significant event reported. Slept total of 2.0 hours only. Continue care as planned.
[2020-09-03] MEDS: PANTOPRAZOLE SODIUM 40 MG TABLET.DR PO SCH (06:26)
[2020-09-03 07:30] VITALS: BP 147/99
[2020-09-03] MEDS: ASPIRIN EC 81 MG TABLET.DR PO SCH (08:18)
[2020-09-03] MEDS: OLANZAPINE 5 MG TABLET PO SCH ×2 (08:18→16:56)
[2020-09-03] MEDS: DIVALPROEX 500 MG TABLET.DR PO SCH ×2 (08:18→21:00)
[2020-09-03] MEDS: NEPRO (VANILLA) 237 ML CAN PO SCH (08:21)
[2020-09-03] MEDS: LORAZEPAM 1 MG TABLET PO PRN (08:49)
--- NOTE | 2020-09-03 08:49 | NUR ---
ON GERICHAIR BY THE HALLWAY VERY HYPERVOCAL BANGING ON THE TABLE STATING TO CALL THE POLICE ATTEMPTING TO GET OUT OF THE CHAIE SHE IS CONFUSSED AND DISORIENTED AND AT RISKS FOR FALLS RELATED TO CONFUSSION AND POOR SAFETY AWARENESS MEDICATED AT THIS TIME WITH ATIVAN ORDERED MADE COMFORTABLE WILL CONTINUE TO OBSERVE.
[2020-09-03] MEDS ORDERED: OLANZAPINE 2.5 MG TABLET PO SCH (09:00)
[2020-09-03] MEDS ORDERED: OLANZAPINE 10 MG VIAL IM ONE (09:15)
[2020-09-03] MEDS ORDERED: LORAZEPAM 2 MG/1 ML VIAL IM ONE (09:15)
--- NOTE | 2020-09-03 09:24 | NUR ---
MORE AGITATED VERBALLY ABUSIVE YELLING OUT CALL THE POLICE CALL 911 BANGING ON THE TABLE THREATHING PHYSICAL HARM TO THE NURSES COMBATIVE AGITATED AND AGGRESSIVE DR IZAGUIRRE NOTIFIED WITH ORDER TO GIVE HIM A ONE TIME ORDER OF ZYPREXA AND ATIVAN AND GIVEN AT THIS TIME.
--- NOTE | 2020-09-03 15:15 | NUR ---
TAKEN BY SIMON/CHAIR TO THE RADIOLOGY DEPT FOR CT HEAD ORDERED SLEEPING BUT AROUSABLE AND BACK TO SLEEP WILL CONTINUE TO OBSERVE.
[2020-09-03 16:00] VITALS: BP 113/77
--- NOTE | 2020-09-03 16:00 | NUR ---
PATIENT IN SIMON/CHAIR STILL SLEEPING RESP AND PULSE ADEQUATE BUT BLOOD PRESSURE WAS IN THE LOW 90 S SYSTOLIC SO PATIENT ASSISTED INTO BED LOWER EXTREMITIES ELEVATED INTO TRENDELENBURG POSITION B/P RECHECKED AND SYSTOLIC AT 103 AND THEN UP TO 111 PATIENT IS TOO GROGGY TO EAT OR DRINK ASSISTED WITH REPOSITIONING MADE COMFORTABLE WILL CONTINUE TO OBSERVE.
[2020-09-03 20:28] VITALS: BP 132/63
[2020-09-03] MEDS: ATORVASTATIN 20 MG TABLET PO SCH (21:00)
[2020-09-04] MEDS: LORAZEPAM 1 MG TABLET PO PRN ×2 (03:08→13:29)
--- NOTE | 2020-09-04 06:17 | NUR ---
Received patient in bed last night sleeping. Skin Former woke up patient to give pm medications, and patient refused. Water given to patient, then he went back to sleep. Early this am , patient woke up, started talking in a loud voice and was disturbing his roommates. Despite reorientation, patient was belligerent , removed all his cloths and was trying to get out of the bed. Skin Former was able to settle patient down but the patient next to him decided to pour some water on the patient to " shut him up". Roommate was moved to another room to prevent any further problems. The patient was cleaned up and redressed. Total sleep hours were 7.00. Patient up at this time but quiet. Monitoring closely for safety and behavior escalation.
[2020-09-04] MEDS: PANTOPRAZOLE SODIUM 40 MG TABLET.DR PO SCH (06:29)
[2020-09-04 07:30] VITALS: BP 169/82
[2020-09-04 07:41] LABS: BASOPHILS % (AUTO) 0.5 % (0.0-2.0); EOSINOPHILS # (AUTO) 0.1 K/uL (0.0-0.7); HEMOGLOBIN 10.8 g/dL (12.5-16.3); LYMPHOCYTES # (AUTO) 2.4 K/uL (20.0-40.0); LYMPHOCYTES % (AUTO) 31.5 % (20.5-51.5); MEAN CORPUSCULAR HEMOGLOBIN 27.8 uug (23.8-33.4); MEAN CORPUSCULAR HGB CONC 33 g/dL (32.5-36.3); MEAN CORPUSCULAR VOLUME 84.7 fL (73.0-96.2); MONOCYTES # (AUTO) 0.7 K/uL (2.0-10.0); MONOCYTES % (AUTO) 8.6 % (0.0-11.0); NEUTROPHILS # (AUTO) 4.5 K/uL (1.8-8.9); NEUTROPHILS % (AUTO) 58.4 % (38.5-71.5); PLATELET COUNT (AUTO) 157 K/uL (152-348); WHITE BLOOD COUNT (AUTO) 7.6 K/uL (3.6-10.2)
[2020-09-04 07:58] LABS: BILIRUBIN,DIRECT 0.8 mg/dL (0.0-0.2); BILIRUBIN,TOTAL 0.4 mg/dL (0.2-1.0); CREATININE 2.3 mg/dL (0.6-1.3); MAGNESIUM 2.6 mg/dL (1.8-2.4); PHOSPHOROUS 3.9 mg/dL (2.5-4.9); POTASSIUM 4.7 mmol/L (3.5-5.1); TOTAL PROTEIN, SERUM 6.8 g/dL (6.4-8.2)
--- NOTE | 2020-09-04 08:00 | NUR ---
RECEIVED PATIENT IN BED AWAKE CONFUSED DISORIENTED TRYING TO GET OUT OF BED FIGHTING AND GRABBING UNABLE TO REDIRECT TOOK TWO NURSES TO GET HIM CHANGED DRESSED AND INTO THE SIMON CHAIR HE DID ATTEPT TO GRAB THE CNAS CRUTCH DISCOURGED FROM DOING THAT STATED WHY NOT SHE IS MY BITCH REORIENTED AND MADE COMFORTABLE NOW SITTING IN THE HALLWAY ON THE SIMON CHAIR BY THE [facility] WILL CONTINUE TO OBSERVE.
[2020-09-04] MEDS: ASPIRIN EC 81 MG TABLET.DR PO SCH (08:39)
[2020-09-04] MEDS: DIVALPROEX 500 MG TABLET.DR PO SCH ×2 (08:39→20:27)
[2020-09-04] MEDS: OLANZAPINE 5 MG TABLET PO SCH ×2 (08:39→16:04)
[2020-09-04] MEDS: NEPRO (VANILLA) 237 ML CAN PO SCH (09:01)
--- NOTE | 2020-09-04 11:41 | NUR ---
DR ANDRES PROCESS IMPROVEMENT ENGINEER KRISTIAN HERE TO SEE PATIENT WITH NEW ORDERS AND NOTED [PATIENT SITTING UP ON THE SIMON/CHAIR CONFUSED DISORIENTED ALL NEEDS ANTICIPATED AND SATISFIED MADE COMFORTABLE WILL OBSERVE.
[2020-09-04] MEDS ORDERED: IV NS 1000 ML 1,000 ML IV ONE ×2 (12:00→14:45)
--- NOTE | 2020-09-04 13:30 | NUR ---
PATIENT IS VERY CONFUSED AND VERY DISORIENTED TOOK OFF HIS SHIRT THREW IT ON THE FLOOR AND IS CURRENTLY TEARING APART HIS DIAPER UNABLE TO REDIRECT MEDICATED WITH ATIVAN ORDERED WILL NEED TO INSERT A HEPLOCK IN ORDER TO RUN THE NS BOLUS ORDERED BUT ITS UNSAFE AT THIS TIME [PATIENT IS GRABBING AND FIGGITING WILL REASSESS THE EFFECTIVENESS OF THE ATIVAN BEFORE HEPLOCK CAN BE INSERTED.
--- NOTE | 2020-09-04 14:30 | NUR ---
PATIENT IS SOMEWHAT CALMER NOW SO I WAS ABLE TO INSERT A GAUGE 20 TO HIS RIGHT WRIST AND WRAPPED WITH KIRLIX IVF STARTED ORDERED.
[2020-09-04 15:29] VITALS: BP 147/90
--- NOTE | 2020-09-04 16:45 | NUR ---
PATIENT PULLED OUT HIS HEPLOCK AGITATED AT THIS TIME UNABLE TO INSERT ANOTHER ONE TO FINISH THE ONE LITER ORDERED INFUSED ONLY 575 ML OF THE NORMAL SALINE WILL ENDORSE.THE ULTRA SOUND TECH HERE TO DO US OF THE KIDNEYS ORDERED AND PATIENT REFUSED WAS VERY UNCOOPERATIVE WILL ENDOESR TALKING TO SELF AND RESPONDING CONFUSED AND DISORIENTED AT THIS TIME WILL CONTINUE TO OBSERVE.
--- NOTE | 2020-09-04 16:57 | NUR ---
The patient is confused and combative. The patient refused the exam.
--- NOTE | 2020-09-04 18:00 | NUR ---
PATIENT IS INCONTINENT CHANGED AND PLACED BACK INTO THE CHAIR PATIENT IS STILL UNCOOPERATIVE AND AGITATED EVEN THOUGH HE LOOKS GROGGY SEEN BANGING ON THE CHAIR TABLE AT TIMES REDIRECTABLE WILL CONTINUE TO MONITOR AND PROVIDE SAFE AND THERAPEUTIC ENVIRONMENT AT ALL TIMES.
[2020-09-04] MEDS: ATORVASTATIN 20 MG TABLET PO SCH (20:27)
[2020-09-04 20:28] VITALS: BP 156/84
[2020-09-04] MEDS: TEMAZEPAM 7.5 MG CAPSULE PO PRN (21:06)
--- NOTE | 2020-09-05 06:01 | NUR ---
Received patient in the Mary Chair at the nurses station last night. Snacks provided to patient with oral fluid encouragement. Patient was able to take medications without difficulty. Air Transportation Provider put patient to bed, provided PM care, and implemented safety precautions. Patient was had an unsteady gait, became somewhat combative and is confused. Oriented X1 only. Total sleep hours 6.30 and patient continues to be asleep at this time. Air Transportation Provider turned and repositioned patient for comfort throughout the night. Unable to obtain a UA due to incontinence, will endorse to oncoming shift.
[2020-09-05] MEDS: PANTOPRAZOLE SODIUM 40 MG TABLET.DR PO SCH (06:11)
[2020-09-05 07:30] VITALS: BP 152/82
[2020-09-05] MEDS: ASPIRIN EC 81 MG TABLET.DR PO SCH ×3 (08:37→11:26)
[2020-09-05] MEDS: DIVALPROEX 500 MG TABLET.DR PO SCH ×5 (08:37→22:16)
[2020-09-05] MEDS: OLANZAPINE 5 MG TABLET PO SCH ×4 (08:37→16:36)
[2020-09-05] MEDS: NEPRO (VANILLA) 237 ML CAN PO SCH (08:41)
[2020-09-05] MEDS: LORAZEPAM 1 MG TABLET PO PRN (12:20)
--- NOTE | 2020-09-05 13:38 | NUR ---
Patient is agitated, verbally abusive to staff, and is becoming physically aggressive. patient provided with PO PRN Ativan but is ineffective. patient is alert to name only. He has been constantly provided with reality orientation and redirection but is refusing to participate and continues to ask staff to let him out to 'get a taxi'. patient provided with food and fluids, but throwing on the floor. patient is refusing to follow direction from staff. he is impulsive, agitated, and has no regards for his safety or the safety of others. notified, order received for Zyprexa 10 mg and Ativan 1 mg IM once. orders noted and carried out.
[2020-09-05] MEDS ORDERED: OLANZAPINE 10 MG VIAL IM ONE (13:45)
[2020-09-05] MEDS ORDERED: LORAZEPAM 2 MG/1 ML VIAL IM ONE (13:45)
--- NOTE | 2020-09-05 15:24 | NUR ---
UR NOTE: JT called [facility] ([phone] Opt 1 Opt 2) and spoke with Meg regarding authorization ([id number]) she stated that [employer] are from their out of area team ([phone]). Incorrect number. Need to follow up, Informed GG from Intake.
--- NOTE | 2020-09-05 15:26 | NUR ---
JT Family Contact: JT spoke with patient's sister, Shaista ([phone]) and discussed continued treatment and discharge plan. Shaista stated she would like to speak with the patient's nurse and this aids social worker forwarded the phone call to Rohith CORRALES.
[2020-09-05 15:29] VITALS: BP 133/84
[2020-09-05 20:27] VITALS: BP 121/85
[2020-09-05] MEDS: ATORVASTATIN 20 MG TABLET PO SCH ×2 (21:00→22:17)
--- NOTE | 2020-09-05 21:22 | NUR ---
GPS: Pt.remains asleep but arousable. Bedtime PO meds.held at this time. In no acute resp.distress noted.
[2020-09-05] MEDS: TEMAZEPAM 7.5 MG CAPSULE PO PRN (22:59)
[2020-09-06] MEDS: LORAZEPAM 1 MG TABLET PO PRN ×2 (03:28→10:37)
[2020-09-06] MEDS: ACETAMINOPHEN 325 MG TABLET PO PRN (03:28)
--- NOTE | 2020-09-06 03:37 | NUR ---
GPS: Pt.is awake,anxious and restless. Confused,disoriented and disorganized. Poor insight to present situation. At high risk for falls due to poor safety awareness. Re-assured and re-directed. Ativan 1mg given for anxiety with Tyl 650 mg for c/o generalized pain. Repositioned for comfort. Fluids encouraged and liliana.well. Fall precautions observed.
[2020-09-06] MEDS: PANTOPRAZOLE SODIUM 40 MG TABLET.DR PO SCH (06:10)
[2020-09-06 08:06] LABS: ALBUMIN 3.2 g/dL (2.9-4.4); ALPHA-1-GLOBULIN 0.3 g/dL (0.0-0.4); ALPHA-2-GLOBULIN 0.8 g/dL (0.4-1.0); BETA GLOBULIN 1.1 g/dL (0.7-1.3); GAMMA GLOBULIN 0.9 g/dL (0.4-1.8); GLOBULIN, TOTAL 3.2 g/dL (2.2-3.9); M-SPIKE Not Observed g/dL (Not Observed)
[2020-09-06] MEDS: NEPRO (VANILLA) 237 ML CAN PO SCH (08:23)
[2020-09-06] MEDS: DIVALPROEX 500 MG TABLET.DR PO SCH ×2 (08:23→20:07)
[2020-09-06] MEDS: OLANZAPINE 5 MG TABLET PO SCH ×2 (08:23→17:41)
[2020-09-06] MEDS: ASPIRIN EC 81 MG TABLET.DR PO SCH (08:23)
[2020-09-06 08:29] VITALS: BP 134/90
--- NOTE | 2020-09-06 10:02 | NUR ---
Received pt sitting up in shane-chair, noted banging on wall, throwing a drink, and cursing. Alert to self, disoriented, agitated, and confused. When asked if he knew where he was, pt stated "in a crappy hospital". When asked if he knew what day it was, pt stated "today is the day". Reality orientation and redirection provided. Pt denies SI/HI/AH/VH at this time. Pt adherent with medication regimen, no a/r noted. Hydration and toileting needs met, pt kept clean and dry. Pt verbally abusive towards staff during toileting and repositioning. Redirection provided. Safe environment and fall precautions ensured. Will continue to monitor.
--- NOTE | 2020-09-06 11:56 | NUR ---
JT PC Hearing: Patient had 5250 probable cause hearing today and it was upheld for danger to self and grave disability.
--- NOTE | 2020-09-06 14:49 | NUR ---
UR NOTE: Per Intake, SW faxed patient's updated clinicals to the following (FAX [phone]): Lalo Cuenca Case Manger [phone] Ext [phone] Rachel Hanna Meter Shop Supervisor [phone] ext [phone]
[2020-09-06 15:47] LABS: BASOPHILS % (AUTO) 0.4 % (0.0-2.0); EOSINOPHILS # (AUTO) 0.2 K/uL (0.0-0.7); EOSINOPHILS % (AUTO) 3.3 % (0.0-7.0); HEMATOCRIT 36.8 % (36.7-47.1); HEMOGLOBIN 12.2 g/dL (12.5-16.3); LYMPHOCYTES # (AUTO) 2.7 K/uL (20.0-40.0); LYMPHOCYTES % (AUTO) 35.6 % (20.5-51.5); MEAN CORPUSCULAR HGB CONC 33 g/dL (32.5-36.3); MEAN CORPUSCULAR VOLUME 84.6 fL (73.0-96.2); MONOCYTES # (AUTO) 0.6 K/uL (2.0-10.0); MONOCYTES % (AUTO) 7.5 % (0.0-11.0); NEUTROPHILS % (AUTO) 53.2 % (38.5-71.5); PLATELET COUNT (AUTO) 123 K/uL (152-348); RED BLOOD CELL COUNT(AUTO) 4.35 MIL/uL (4.06-5.63); WHITE BLOOD COUNT (AUTO) 7.6 K/uL (3.6-10.2)
[2020-09-06 16:00] VITALS: BP 131/90
--- NOTE | 2020-09-06 16:00 | NUR ---
Pt refused retro ultrasound. combative
[2020-09-06 16:02] LABS: BILIRUBIN,TOTAL 0.3 mg/dL (0.2-1.0); MAGNESIUM 2.9 mg/dL (1.8-2.4); PHOSPHOROUS 4.8 mg/dL (2.5-4.9); POTASSIUM 5.1 mmol/L (3.5-5.1); TOTAL PROTEIN, SERUM 7.9 g/dL (6.4-8.2)
--- NOTE | 2020-09-06 18:30 | NUR ---
EOSS: Pt calm upon approach at this time, remains disoriented. Reality orientation and redirection provided PRN. Due medications given per order, no a/r noted. Hydration and toileting needs met, pt repositioned, kept clean and dry. Pt made inappropriate comments towards staff during toileting and repositioning. Redirection provided. Notified by SKEIN DRIER of elevated HR up to 122 this afternoon. Manually checked HR, 102. Other VSS. Charge nurse made aware, message left with provider. Oral fluids encouraged, pt tolerated water and cranberry juice. Pt ate dinner, tolerated well. Safe environment and fall precautions ensured. Will endorse care to rn night.
[2020-09-06 18:35] LABS: *BILIRUBIN,URIN NEGATIVE (NEGATIVE); *BLOOD, URINE 2+ (NEGATIVE); *COLOR,URINE YELLOW (YELLOW); *KETONES,URINE TRACE (NEGATIVE); *UROBILINOGEN,URINE 0.2 E.U./dl (NORMAL); LEUKOCYTE ESTERASE ,URINE NEGATIVE (NEGATIVE); NITRITE, URINE NEGATIVE (NEGATIVE); PH,URINE 5.5 (5.0-8.0); UGLUCOSE NEGATIVE (NEGATIVE)
[2020-09-06 18:42] LABS: *URINE TOTAL PROTEIN RANDOM 28.1 mg/dL (<150/24HR)
[2020-09-06 19:37] LABS: *CLARITY,URINE HAZY (CLEAR)
[2020-09-06 19:38] LABS: BACTERIA,URINE FEW /HPF (NONE SEEN); RBC,URINE 80-100 /HPF (0-3); SQUAMOUS EPITHELIAL CELL,UR NONE SEEN /HPF (NONE SEEN)
[2020-09-06] MEDS: ATORVASTATIN 20 MG TABLET PO SCH (20:07)
[2020-09-06 20:16] VITALS: BP 121/81
--- NOTE | 2020-09-06 21:07 | NUR ---
GPS: Pt. resting at this time. Took bedtime meds.earlier after some persuasion from staff. Pt.remains alert to self. Confused,disoriented and disorganized. Poor insight to present situation. Fluids encouraged for hydration purposes and liliana.well. No s/s of aspiration noted. Snacks offered but refused. Fall precautions observed. was paged to inform him of latest lab results. Awaiting call back. Endorsed to nurse upstairs (Ngozi) since he's being transferred to [facility].
--- NOTE | 2020-09-06 21:25 | NUR ---
DR. ZALDIVAR AND DR. RENU SOTO WERE NOTIFIED OF PATIENT'S TRANSFERRED, GEROPSYCH OVERFLOWED, TO THIRD FLOOR. DR SOTO WAS NOTIFY OF PATIENT LABS. HE STATED HE WILL GO OVER HIS LABS. WILL CONTINUE TO MONITOR.
--- NOTE | 2020-09-06 23:28 | NUR ---
received a 64 yr old male from [facility] with admitting diagnosis of psychosis. Hx of psychiatric disorders, schizophrenia, HTN, neurologic disorders. Patient on gerichair upon arrival to the floor. Patient was asleep. VSS. Patient with a 1:1 sitter at the bedside. No behavioral issues noted. Will monitor patient.
[2020-09-07] MEDS: PANTOPRAZOLE SODIUM 40 MG TABLET.DR PO SCH (06:12)
--- NOTE | 2020-09-07 06:30 | NUR ---
End of shift notes: Quiet night. Patient on 1:1 sitter. No behavioral issues noted. Compliant with care and meds. VSS. Slept well 9 hours of sleep.
[2020-09-07 06:50] LABS: BASOPHILS % (AUTO) 0.2 % (0.0-2.0); EOSINOPHILS # (AUTO) 0.2 K/uL (0.0-0.7); EOSINOPHILS % (AUTO) 2.5 % (0.0-7.0); HEMATOCRIT 35.9 % (36.7-47.1); HEMOGLOBIN 11.8 g/dL (12.5-16.3); LYMPHOCYTES # (AUTO) 2.7 K/uL (20.0-40.0); LYMPHOCYTES % (AUTO) 31.5 % (20.5-51.5); MEAN CORPUSCULAR HEMOGLOBIN 28.1 uug (23.8-33.4); MEAN CORPUSCULAR HGB CONC 33 g/dL (32.5-36.3); MEAN CORPUSCULAR VOLUME 85.5 fL (73.0-96.2); MONOCYTES # (AUTO) 0.9 K/uL (2.0-10.0); MONOCYTES % (AUTO) 10.5 % (0.0-11.0); NEUTROPHILS # (AUTO) 4.7 K/uL (1.8-8.9); NEUTROPHILS % (AUTO) 55.3 % (38.5-71.5); PLATELET COUNT (AUTO) 105 K/uL (152-348); WHITE BLOOD COUNT (AUTO) 8.5 K/uL (3.6-10.2)
[2020-09-07 07:08] LABS: BILIRUBIN,TOTAL 0.3 mg/dL (0.2-1.0); MAGNESIUM 3.1 mg/dL (1.8-2.4); POTASSIUM 4.6 mmol/L (3.5-5.1); TOTAL PROTEIN, SERUM 7.2 g/dL (6.4-8.2)
[2020-09-07 07:30] VITALS: BP 100/61
--- NOTE | 2020-09-07 07:30 | NUR ---
Patient received from slot shift supervisor. Patient is alert and oriented x 1-2. On room air. Skin is intact. Patient is ambulatory with assist. Patient is on 1:1 with sitter. Patient is calm and cooperative. Incontinent for bowel and urine, wears a diaper.
[2020-09-07] MEDS: DIVALPROEX 500 MG TABLET.DR PO SCH ×2 (08:24→20:59)
[2020-09-07] MEDS: OLANZAPINE 5 MG TABLET PO SCH ×2 (08:24→17:36)
[2020-09-07] MEDS: ASPIRIN EC 81 MG TABLET.DR PO SCH (08:24)
[2020-09-07] MEDS: NEPRO (VANILLA) 237 ML CAN PO SCH ×3 (08:25→17:13)
--- NOTE | 2020-09-07 15:59 | NUR ---
UR NOTE: Auth #[id number] JT received a call from commercial intelligence manager Genna from [facility] ([phone]) who stated that patient is authorized until discharged from the hospital. JT requested possible SNF placement for this patient and Genna stated that they will provide KIA for any SNF. JT will work on coordination of placement.
[2020-09-07 16:00] VITALS: BP 105/70
--- NOTE | 2020-09-07 18:59 | NUR ---
Patient resting gerichair. Pt is alert and oriented to self. Skin is intact. On room air. No signs of distress noted. No reports of pain at this time. Pt able to ambulate with assist. Pt is incontinent, voids via diaper. Pt transferred back to [facility] via [facility]. Report given to Noelle CORRALES. Pt in stable condition. Pt sent with all belongings and chart. All medications given as ordered.
[2020-09-07 20:16] VITALS: BP 101/52
[2020-09-07] MEDS: ATORVASTATIN 20 MG TABLET PO SCH (20:59)
--- NOTE | 2020-09-07 21:00 | NUR ---
Received patient in shane chair. No s/s of acute distress noted at this time. Patient agitated hitting at the table, and pulling off clothing. Provided redirection and reorientation. Patient compliant with medications. Safety measures in place
[2020-09-07] MEDS ORDERED: LORAZEPAM 1 MG TABLET PO PRN (22:15)
[2020-09-07] MEDS: TEMAZEPAM 7.5 MG CAPSULE PO PRN (22:43)
[2020-09-08] MEDS: PANTOPRAZOLE SODIUM 40 MG TABLET.DR PO SCH (06:07)
[2020-09-08] MEDS: LORAZEPAM 1 MG TABLET PO PRN (06:07)
--- NOTE | 2020-09-08 06:21 | NUR ---
Patient slept 7 hours. PRN medications given for sleep. Pt in hallway agitated and hitting at table yelling and calling the other patients names. Provided redirection and distraction. PRN Ativan given for agitation. Will continue to monitor for safety.
[2020-09-08 07:30] VITALS: BP 125/90
[2020-09-08] MEDS: ASPIRIN EC 81 MG TABLET.DR PO SCH (09:00)
[2020-09-08] MEDS: OLANZAPINE 5 MG TABLET PO SCH ×2 (09:00→16:16)
[2020-09-08] MEDS: DIVALPROEX 500 MG TABLET.DR PO SCH ×2 (09:00→20:06)
[2020-09-08] MEDS: NEPRO (VANILLA) 237 ML CAN PO SCH ×2 (09:01→17:51)
--- NOTE | 2020-09-08 11:35 | NUR ---
JT SNF Referral: SW faxed patient's referral packet attention to Loy to the following facilities for review and possible placement [facility] ([phone]), [facility] ([phone]), [facility] ([phone]), [facility] ([phone]).
--- NOTE | 2020-09-08 13:26 | NUR ---
UR NOTE: Auth #[id number] SW faxed business case analyst Genna from [facility] ([phone]; ) doctor's order for possible SNF.
[2020-09-08 16:52] VITALS: BP 110/76
[2020-09-08] MEDS: ATORVASTATIN 20 MG TABLET PO SCH (20:07)
[2020-09-08] MEDS: TEMAZEPAM 7.5 MG CAPSULE PO PRN (22:01)
[2020-09-09] MEDS: PANTOPRAZOLE SODIUM 40 MG TABLET.DR PO SCH (06:09)
[2020-09-09 07:30] VITALS: BP 111/75
[2020-09-09] MEDS: NEPRO (VANILLA) 237 ML CAN PO SCH ×2 (09:00→17:34)
--- NOTE | 2020-09-09 09:35 | NUR ---
UR NOTE: Auth #[id number] JT called and left a voicemail for transplant case manager Genna from [facility] ([phone]; ) to follow up with BRENNEN ADAM. Addendum: 09/09/20 at 1126 by TINY OLIVER JT Spoke with Genna who stated that they will try to get an accepting facility for the patient by Saturday. Genna will be following up with this social sciences chair Saturday.
[2020-09-09] MEDS: OLANZAPINE 5 MG TABLET PO SCH ×2 (09:55→17:35)
[2020-09-09] MEDS: LORAZEPAM 1 MG TABLET PO PRN ×2 (09:55→21:44)
[2020-09-09] MEDS: ASPIRIN EC 81 MG TABLET.DR PO SCH (09:55)
[2020-09-09] MEDS: DIVALPROEX 500 MG TABLET.DR PO SCH ×2 (09:55→20:30)
[2020-09-09 15:30] VITALS: BP 169/90
[2020-09-09] MEDS: ATORVASTATIN 20 MG TABLET PO SCH (20:30)
[2020-09-09 21:03] VITALS: BP 103/59
--- NOTE | 2020-09-09 21:46 | NUR ---
patient is very agitated banging on side table. yelling at time. Ativan 1 mg po given for agitation. continue plan of care.
--- NOTE | 2020-09-09 22:46 | NUR ---
patient is calm at this time. prn effective for agitation.
[2020-09-10] MEDS: LORAZEPAM 1 MG TABLET PO PRN ×2 (05:36→11:49)
--- NOTE | 2020-09-10 05:40 | NUR ---
patient is very agitated. banging on the table. stated i want to go home. reorientation provided. ativan 1 mg po given.
[2020-09-10] MEDS: PANTOPRAZOLE SODIUM 40 MG TABLET.DR PO SCH (06:08)
--- NOTE | 2020-09-10 06:23 | NUR ---
GPS: Remain uncooperative with care. assisted with adl's. took shower this morning. slept 5.30 hrs through the night. ativan 1 mg po given and effective for agitation. resting in shane chair near nursing station for safety.
[2020-09-10 07:30] VITALS: BP 113/71
[2020-09-10] MEDS: ASPIRIN EC 81 MG TABLET.DR PO SCH (08:31)
[2020-09-10] MEDS: OLANZAPINE 5 MG TABLET PO SCH ×2 (08:31→16:19)
[2020-09-10] MEDS: DIVALPROEX 500 MG TABLET.DR PO SCH ×2 (08:31→20:01)
[2020-09-10] MEDS: NEPRO (VANILLA) 237 ML CAN PO SCH ×2 (08:32→17:00)
[2020-09-10 16:00] VITALS: BP 109/77
--- NOTE | 2020-09-10 18:19 | NUR ---
RECEIVED PATIENT ON SIMON CHAIR, TRYING TO REMOVE HIS DIAPER, ASSISTED PATIENT AND EDUCATE WITH THE USE OF DIAPER, PATIENT ASSISTED WITH SHOWER, PATIENT ASSISTED WITH AMBULATION, ON MONITORING FOR SAFETY NO SIGN OF DISTRESS
--- NOTE | 2020-09-10 19:45 | NUR ---
RECEIVED PATIENT IN RECLINING CHAIR, PATIENT COOPERATIVE WITH MEDICATION. PATIENT HAS EPISODE OF TALKING TO SELF, CONT TO MONITOR.
[2020-09-10 20:00] VITALS: BP 109/67
[2020-09-10] MEDS: ATORVASTATIN 20 MG TABLET PO SCH (20:01)
[2020-09-10] MEDS: TEMAZEPAM 7.5 MG CAPSULE PO PRN (22:59)
--- NOTE | 2020-09-11 05:24 | NUR ---
PATIENT SLEPT MOST OF THE NIGHT, NO S/S OF PAIN OR DISCOMFORT. PATIENT COOPERATIVE MEDICATIONS, WITH ONE ATTEMPT TO CLIMB OOB, BED ALARM IN PLACE. CONT TO MONITOR.
[2020-09-11] MEDS: PANTOPRAZOLE SODIUM 40 MG TABLET.DR PO SCH (06:19)
[2020-09-11 07:30] VITALS: BP 118/77
--- NOTE | 2020-09-11 07:30 | NUR ---
Received patient sitting in Mary chain in the hallway. Patient is awake, alert and oriented times 1. No sign of distress noted. Patient talk to himself at times and is easily agitated. All safety precautions have been put in place. Will continue to monitor.
[2020-09-11] MEDS: ASPIRIN EC 81 MG TABLET.DR PO SCH (08:27)
[2020-09-11] MEDS: DIVALPROEX 500 MG TABLET.DR PO SCH ×2 (08:27→20:04)
[2020-09-11] MEDS: NEPRO (VANILLA) 237 ML CAN PO SCH ×2 (08:27→17:08)
[2020-09-11] MEDS: OLANZAPINE 5 MG TABLET PO SCH ×2 (08:27→17:08)
[2020-09-11 16:00] VITALS: BP 109/73
[2020-09-11 16:29] LABS: BASOPHILS % (AUTO) 0.5 % (0.0-2.0); EOSINOPHILS # (AUTO) 0.1 K/uL (0.0-0.7); EOSINOPHILS % (AUTO) 1.5 % (0.0-7.0); HEMATOCRIT 36.9 % (36.7-47.1); HEMOGLOBIN 12.1 g/dL (12.5-16.3); LYMPHOCYTES # (AUTO) 2.1 K/uL (20.0-40.0); LYMPHOCYTES % (AUTO) 22.4 % (20.5-51.5); MEAN CORPUSCULAR HEMOGLOBIN 27.6 uug (23.8-33.4); MEAN CORPUSCULAR HGB CONC 33 g/dL (32.5-36.3); MEAN CORPUSCULAR VOLUME 84.4 fL (73.0-96.2); MONOCYTES # (AUTO) 0.8 K/uL (2.0-10.0); MONOCYTES % (AUTO) 8.4 % (0.0-11.0); NEUTROPHILS # (AUTO) 6.4 K/uL (1.8-8.9); NEUTROPHILS % (AUTO) 67.2 % (38.5-71.5); PLATELET COUNT (AUTO) 182 K/uL (152-348); RED BLOOD CELL COUNT(AUTO) 4.37 MIL/uL (4.06-5.63); WHITE BLOOD COUNT (AUTO) 9.5 K/uL (3.6-10.2)
[2020-09-11 16:30] LABS: CREATININE 2.4 mg/dL (0.6-1.3); POTASSIUM 4.8 mmol/L (3.5-5.1)
[2020-09-11 16:35] LABS: BILIRUBIN,TOTAL 0.3 mg/dL (0.2-1.0); MAGNESIUM 3.5 mg/dL (1.8-2.4); TOTAL PROTEIN, SERUM 7.7 g/dL (6.4-8.2)
--- NOTE | 2020-09-11 18:36 | NUR ---
Patient in resting in Mary chair. Patient bangs on table but is redirectable. Takes all medications as ordered. Safety precautions are in place. Will endorse to oncoming nurse
[2020-09-11] MEDS: ACETAMINOPHEN 325 MG TABLET PO PRN (19:29)
[2020-09-11] MEDS ORDERED: IV NS 1000 ML 1,000 ML IV ONE (20:00)
[2020-09-11] MEDS: ATORVASTATIN 20 MG TABLET PO SCH (20:04)
[2020-09-11 20:22] VITALS: BP 99/69
[2020-09-12] MEDS: LORAZEPAM 1 MG TABLET PO PRN ×2 (03:31→12:44)
[2020-09-12] MEDS: ACETAMINOPHEN 325 MG TABLET PO PRN (03:31)
[2020-09-12] MEDS: PANTOPRAZOLE SODIUM 40 MG TABLET.DR PO SCH (06:27)
--- NOTE | 2020-09-12 06:55 | NUR ---
PT SLEPT 3 H. PT IN NO ACUTE DISTRESS.PRESCRIBED MEDICATION GIVEN AND PT TOLERATED IT WELL.. PT GIVEN NORMAL SALINE 1000ML. PT TOLERATED IT WELL. PT GIVEN TYLENOL PRN AT 1929H AND 0331 H. PT GIVEN ATIVAN PRN AT 033 . PT ANXIOUS AND GETTING OUT OF THE BED SEVERAL TIMES. PT PUT ON SIMON-CHAIR FOR SAFETY. PT SHOWERED. SAFETY AND COMFORT PROVIDED. ALL NEEDS ARE MET. WILL ENDORSE TO INCOMING NURSE FOR CONTINUITY OF CARE.
[2020-09-12 07:30] VITALS: BP 126/67
[2020-09-12 07:39] LABS: BILIRUBIN,DIRECT 0.7 mg/dL (0.0-0.2); BILIRUBIN,TOTAL 0.3 mg/dL (0.2-1.0); CREATININE 2.3 mg/dL (0.6-1.3); MAGNESIUM 3.1 mg/dL (1.8-2.4); POTASSIUM 4.7 mmol/L (3.5-5.1); TOTAL PROTEIN, SERUM 7.1 g/dL (6.4-8.2)
[2020-09-12] MEDS: ASPIRIN EC 81 MG TABLET.DR PO SCH (08:02)
[2020-09-12] MEDS: DIVALPROEX 500 MG TABLET.DR PO SCH ×2 (08:02→21:01)
[2020-09-12] MEDS: OLANZAPINE 5 MG TABLET PO SCH ×2 (08:02→16:26)
[2020-09-12] MEDS: NEPRO (VANILLA) 237 ML CAN PO SCH ×2 (08:43→17:00)
[2020-09-12] MEDS ORDERED: IV NS 1000 ML 1,000 ML IV ONE (11:00)
--- NOTE | 2020-09-12 12:17 | NUR ---
UR NOTE: Auth #[id number] JT spoke with corrections caseworker Genna from [facility] ([phone]; ) regarding KIA for SNF placement. Genna stated they faxed patients' referral to their contracted SNFs and if none are able to accept the patient by this afternoon, then she will provide KIA for accepting non-contracted SNF. Will follow up by 2pm.
--- NOTE | 2020-09-12 12:19 | NUR ---
JT SNF Referral: JT received a call from Dania from [facility] ([phone]) who stated that they are unable to accept the patient due to behaviors.
--- NOTE | 2020-09-12 12:24 | NUR ---
JT SNF Referral: JT faxed patient's referral packet to [facility] ( ) for review attention to [facility]. Addendum: 09/12/20 at 1438 by TINY OLIVER JT spoke with [facility] who stated patient did not get accepted due to behaviors.
--- NOTE | 2020-09-12 14:13 | NUR ---
patient alert and oriented to name only. he is agitated, restless, resistive to education and redirection from staff. patient becomes easily angry. patient is seen talking to unknown others, he told this database report writer 'I'm talking on the phone" and then started speaking to no one. patient is also having VH, he appears to be seeing his friends and cars standing in front of him. patient requires constant redirection and reality orientation. patient is receiving IV NS for abnormal labs, tolerating well. patient requires assistance with ADL's, eating/drinking, and ambulation. patient is adherent with medication, no adverse reaction noted.
--- NOTE | 2020-09-12 14:39 | NUR ---
JT SNF Referral: JT faxed patient's referral packet to [facility] ( ) for review attention to Terence who stated patient is accepted at facility for placement however they are closed for admissions and are waiting to be cleared.
--- NOTE | 2020-09-12 14:42 | NUR ---
UR NOTE: Auth #[id number] JT spoke with manager rn case Genna from [facility] ([phone]; ) regarding KIA for SNF placement and she stated she has yet to hear back from all the SNFs and will update this procedure writer again soon. JT provided [facility] information.
[2020-09-12] MEDS: MEGESTROL ACETATE 20 MG TABLET PO SCH (16:26)
--- NOTE | 2020-09-12 17:13 | NUR ---
IV NS finished infusing. patient tolerated well with no adverse reactions. IV site is patent, intact, with a clean and dry dressing.
[2020-09-12 20:00] VITALS: BP 137/81
--- NOTE | 2020-09-12 20:00 | NUR ---
RECEIVED PATIENT IN RECLINING CHAIR, PATIENT AGITATED WHEN APPROACHES. PATIENT REDIRECT BEHAVIOR AND HE CALMS DOWN. CONT TO MONITOR.
[2020-09-12] MEDS: ATORVASTATIN 20 MG TABLET PO SCH (21:01)
[2020-09-12] MEDS: TEMAZEPAM 7.5 MG CAPSULE PO PRN (21:51)
[2020-09-13] MEDS: LORAZEPAM 1 MG TABLET PO PRN ×3 (01:33→21:09)
[2020-09-13] MEDS: PANTOPRAZOLE SODIUM 40 MG TABLET.DR PO SCH (06:14)
--- NOTE | 2020-09-13 07:24 | NUR ---
PATIENT SLEEPY BUT AROUSABLE. PATIENT CLIMBS OUT OF BED, SLEPT FOR FEW HOURS ONLY. PATIENT COOPERATIVE WITH MEDICATIONS. PATIENT WAS KEPT CLEAN DRY ENDORSE TO NEXT SHIFT.
[2020-09-13] MEDS: DIVALPROEX 500 MG TABLET.DR PO SCH ×2 (08:30→21:09)
[2020-09-13] MEDS: OLANZAPINE 5 MG TABLET PO SCH ×2 (08:30→17:39)
[2020-09-13] MEDS: ASPIRIN EC 81 MG TABLET.DR PO SCH (08:30)
[2020-09-13] MEDS: MEGESTROL ACETATE 20 MG TABLET PO SCH ×2 (08:31→17:39)
[2020-09-13] MEDS: NEPRO (VANILLA) 237 ML CAN PO SCH ×2 (08:31→17:38)
[2020-09-13 11:10] LABS: BILIRUBIN,TOTAL 0.3 mg/dL (0.2-1.0); MAGNESIUM 3.4 mg/dL (1.8-2.4); POTASSIUM 4.4 mmol/L (3.5-5.1); TOTAL PROTEIN, SERUM 7.2 g/dL (6.4-8.2)
--- NOTE | 2020-09-13 11:23 | NUR ---
JT SNF Referral: JT faxed patient's referral packet attention to Loy at [facility] ([phone]) and he stated that patient is accepted for placement. Loy stated that they have gotten in contact with Genna case therapist from [facility] ([phone]) for KIA.
--- NOTE | 2020-09-13 11:25 | NUR ---
UR NOTE: Auth #[id number] JT left a message for protective services case worker Genna from [facility] ([phone]; ) regarding KIA for SNF placement possibly [facility]. Waiting for a return call. Addendum: 09/13/20 at 1459 by TINY OLIVER JT spoke with Genna who stated that they are working on contracted SNFs and will update this technical writer and editor soon.
[2020-09-13 14:44] LABS: BASOPHILS % (AUTO) 0.4 % (0.0-2.0); EOSINOPHILS # (AUTO) 0.3 K/uL (0.0-0.7); EOSINOPHILS % (AUTO) 3.3 % (0.0-7.0); HEMATOCRIT 31.7 % (36.7-47.1); HEMOGLOBIN 10.3 g/dL (12.5-16.3); LYMPHOCYTES # (AUTO) 2.2 K/uL (20.0-40.0); LYMPHOCYTES % (AUTO) 27.1 % (20.5-51.5); MEAN CORPUSCULAR HEMOGLOBIN 27.5 uug (23.8-33.4); MEAN CORPUSCULAR HGB CONC 33 g/dL (32.5-36.3); MEAN CORPUSCULAR VOLUME 84.4 fL (73.0-96.2); MONOCYTES # (AUTO) 0.7 K/uL (2.0-10.0); MONOCYTES % (AUTO) 8.5 % (0.0-11.0); NEUTROPHILS # (AUTO) 4.9 K/uL (1.8-8.9); NEUTROPHILS % (AUTO) 60.7 % (38.5-71.5); PLATELET COUNT (AUTO) 173 K/uL (152-348); RED BLOOD CELL COUNT(AUTO) 3.75 MIL/uL (4.06-5.63)
--- NOTE | 2020-09-13 15:26 | NUR ---
UR NOTE: Auth #[id number] JT spoke with therapeutic case manager Genna from [facility] ([phone]; ) regarding KIA for SNF placement possibly [facility]. She stated she is speaking with CJ closing coordinator at the facility and will let this newspaper writer know soon.
[2020-09-13 15:29] VITALS: BP 128/80
--- NOTE | 2020-09-13 16:55 | NUR ---
Pt noted agitated, yelling, banging, attempting to slide out of chair. This creative services writer with [employer] and licensed nurse assisted pt out of chair and back into chair safely. Charge Nurse aware. Pt denies pain/discomfort at this time. Pt able to ambulate safely in hallway with assistance. Redirection, reality orientation, and reassurance provided. Hygiene and toileting needs met. Safety measures in place. Will continue to monitor.
--- NOTE | 2020-09-13 18:47 | NUR ---
EOSS: Pt sitting safely in chair, calm at this time, remained disoriented throughout shift. Pt noted talking to self, saying "They're delivering the truck". Reality orientation and redirection provided PRN. Due medications given per order, no a/r noted. Left AC 22 g remains patent and intact. Hygiene and toileting needs met, pt kept clean and dry. Pt ambulated with physical therapist with FWW today, tolerated well. Pt tolerated meals and fluids well. Will endorse care to overnight stocker.
[2020-09-13 20:42] VITALS: BP 132/82
[2020-09-13] MEDS: ATORVASTATIN 20 MG TABLET PO SCH (21:09)
[2020-09-14] MEDS: PANTOPRAZOLE SODIUM 40 MG TABLET.DR PO SCH (06:41)
--- NOTE | 2020-09-14 06:59 | NUR ---
Shift End Report: Vs stable. Been in Mary chair before shower was given. Slept 5.45 hours without interruption. No combativeness, Took all meds and snack without any problem. All needs attended. No significant event reported. Continue care as planned.
[2020-09-14 07:30] VITALS: BP 143/88
--- NOTE | 2020-09-14 07:39 | NUR ---
Received change of shift report from SAVANNA Hernandez. All questions, comments and concerns were addressed. Patient received resting quietly in his assigned bed. Respirations are even and unlabored, no signs of acute respiratory distress noted. Bed is in low and locked position.
[2020-09-14] MEDS: NEPRO (VANILLA) 237 ML CAN PO SCH ×2 (08:09→17:54)
[2020-09-14] MEDS: MEGESTROL ACETATE 20 MG TABLET PO SCH ×2 (08:10→16:47)
[2020-09-14] MEDS: ASPIRIN EC 81 MG TABLET.DR PO SCH (08:10)
[2020-09-14] MEDS: DIVALPROEX 500 MG TABLET.DR PO SCH (08:10)
[2020-09-14] MEDS: OLANZAPINE 5 MG TABLET PO SCH ×2 (08:11→16:47)
--- NOTE | 2020-09-14 08:57 | NUR ---
JT Family Contact: JT spoke with patients sister, Gauri ([phone]) and informed of patient's discharge plan to [facility] and provided her the information. Gauri is aware and agreeable with discharge plan.
--- NOTE | 2020-09-14 09:02 | NUR ---
JT Discharge Note: Patient will be discharged to halfway facility [facility] [place] [address] ([phone]) via Ambulance transportation at 1:00 pm today. Communications Technologist spoke with ALIYA, Learning Development Specialist ([phone]) at facility and he confirmed that patient has been accepted at their facility today. Patient is alert and oriented x2. Patient is not able to plan for self-care at this time but is willing to accept care provided for him at the facility. Patient denies suicidal or homicidal ideation. Patient is aware and agreeable with discharge plans. Patient presents with appropriate mood and congruent affect. Patient will continue to follow-up with Psychiatrist Dr. Joseph and Marketing Services Specialist Dr. Atkins at [facility]. Patients sisterGauri ([phone]) is made aware and is agreeable with discharge plan. Addendum: 09/14/20 at 1201 by TINY OLIVER Nursing informed that transportation will arrive at 3pm today.
[2020-09-14] MEDS ORDERED: IV NS 1000 ML 1,000 ML IV ONE ×2 (09:15→10:30)
--- NOTE | 2020-09-14 10:05 | NUR ---
UR NOTE: Auth #[id number] JT spoke with telehealth case manager Genna from [facility] ([phone]; ) and KIA for SNF placement [facility] has been approved.
--- NOTE | 2020-09-14 11:00 | NUR ---
patient is alert and oriented to name only. he is anxious, restless, at times angry, but is cooperative and redirectable. patient is adherent with medication, no adverse reaction noted. patient sitting in chair. he requires assistance with ambulation for BLE weakness. patient is unable to participate in assessment because he is confused and disoriented. patient is able to feed self after staff sets up meal tray. patient provided with fluids, tolerates well. patient noted with , he visualizes unseen others and speak to unknown others. patient provided with redirection and reality orientation. patient seen by AGING ROOM OPERATOR Chi Parra with orders to infuse Normal Saline IV at 200 mL/hr. 400 ml infused and then patient pulled out IV line at left antecubital area. Site cleaned and insertion site covered with nonsterile gauze and tape. no bleeding noted after site cleansed. no signs of infection.
--- NOTE | 2020-09-14 12:05 | NUR ---
UR NOTE: Auth #[id number] SW faxed family preservation caseworker Genna from [facility] ([phone]; ) all patient's updated clinicals to date.
[2020-09-14 13:31] LABS: CREATININE 1.8 mg/dL (0.6-1.3); POTASSIUM 4.7 mmol/L (3.5-5.1)
--- NOTE | 2020-09-14 16:31 | NUR ---
EMT on the unit to transport patient to [facility]. Patient's VS: BP150/83, HR 130, 97% O2 on room air. SYSTEM DESIGNER Radha Maldonado notified of patient's VS and orders given to transfer patient to Medical-Surgical unit. Psychiatrist, Dr. Joseph, notified and orders given to transfer patient upstairs and to continue 5250 hold expiring on 09/16/20. Nursing Avionics Installer made aware.
[2020-09-14] MEDS: ACETAMINOPHEN 325 MG TABLET PO PRN (16:57)
--- NOTE | 2020-09-14 16:59 | NUR ---
patient noted with temperature 100.8. PRN Tylenol given.
[2020-09-14 17:00] VITALS: BP 127/86
--- NOTE | 2020-09-14 18:26 | NUR ---
report given to SAVANNA Falk. All questions, comments, and concerns were addressed.
--- NOTE | 2020-09-14 19:08 | NUR ---
patient picked up by JAVA DEVELOPER ANALYST to be transported to Medical Surgical unit room 301. patient's belongings and valuables inventoried and sent up with patient. patient transferred and was alert to name only. he ate his dinner and was able to tolerate food and fluids.
[2020-09-14] MEDS ORDERED: DIVA500T2 PO (20:22)
[2020-09-14] MEDS ORDERED: OLAN10TA3 PO (20:22)
[2020-09-14] MEDS ORDERED: NORM50IV2 IV (20:22)
--- NOTE | 2020-09-15 08:55 | NUR ---
GPS Discharge and Transfer Note: Patient was planned for discharge yesterday 09/14/20 [facility] [place] [address] ([phone]) via Ambulance transportation at 3PM. Recreation Facility Manager spoke with ALIYA, Speeder Hand ([phone]) at facility and he confirmed that patient has been accepted at their facility. Patient's discharge was canceled due to patient exhibiting high temperature and rapid heart rate. Patient is alert and oriented x2. Patient is not able to plan for self-care at this time but is willing to accept care provided for him at the facility. Patient denies suicidal or homicidal ideation. Patient is aware and agreeable with discharge plans. Patient presents with appropriate mood and congruent affect. Patient will continue to follow-up with Psychiatrist Dr. Joseph and Work Counselor Dr. Atkins at [facility]. Patients sisterGauri ([phone]) is made aware and is agreeable with discharge plan.
== END 2020-09-14 19:10 | disposition short-term general hospital (02) | DRG 885 ==
LOC: ER 16:28 → GPS 17:21 → GPSOV3 09-06 21:36 → MEDSURG3 09-06 21:48 → GPSOV3 09-06 22:37 → GPS 09-07 19:06
PROVIDERS: ADMIT Psychiatry & Neurology Psychiatry; ATTEND Nurse Practitioner Family
DX: F29 Unspecified psychosis not due to a substance or known physiological condition (principal); N18.9 Chronic kidney disease, unspecified; N17.0 Acute kidney failure with tubular necrosis; E87.0 Hyperosmolality and hypernatremia; I12.9 Hypertensive chronic kidney disease with stage 1 through stage 4 chronic kidney disease, or unspecified chronic kidney disease; E86.0 Dehydration; M89.9 Disorder of bone, unspecified; Z59.0 Homelessness; Z86.73 Personal history of transient ischemic attack (TIA), and cerebral infarction without residual deficits; Z91.19 Patient's noncompliance with other medical treatment and regimen; F20.0 Paranoid schizophrenia; Z20.822 Contact with and (suspected) exposure to COVID-19; E83.52 Hypercalcemia; D64.9 Anemia, unspecified; R94.31 Abnormal electrocardiogram [ECG] [EKG]
CPT/HCPCS: 36415; 70030-TC; 70450; 80164; 83735; 83970; 84100; 84155; 84156; 84165; 84300; 85025; 87086; 93005; A4663; C1758; J1200; J1630; J2060; J2358; J7030

== ENCOUNTER 2020-09-14 16:46 | Inpatient (IN) | payer OTHER ==
[~2020-09-14] VITALS: Ht 177.8 cm; Wt 73.5 kg
[~2020-09-14 16:46] MED LIST changes: -BENZ0.5T43 PO; -LORA2ORA5 PO; -RISP0.5T65 PO
--- NOTE | 2020-09-14 20:15 | NUR ---
Received patient in shane chair with 1:1 sitter.Dx of AMS .Awake and alert x1.Confused.Sinus tachy on tele monitor.On RA.No s/s of distress noted. Denies pain.Inserted new IV line on left FA 22g with good blood return.Tolerated well.Started IVF NS at 60 ml/hr.Due meds given.Skin intact.Incontinent.Changed and pericare provided. Safety measures in place.Md made aware of patient's admission with new order given , noted and carried out.Will continue to monitor.
[2020-09-14] MEDS ORDERED: DIVA500T2 PO (20:22)
[2020-09-14] MEDS ORDERED: NORM50IV2 IV (20:22)
[2020-09-14] MEDS ORDERED: OLAN10TA3 PO (20:22)
[2020-09-14 20:30] VITALS: BP 115/69
[2020-09-14] MEDS ORDERED: MAGNESIUM HYDROXIDE 30 ML LIQUID UDC PO PRN (20:45)
[2020-09-14] MEDS ORDERED: ONDANSETRON 4 MG/2 ML VIAL IV PRN (20:45)
[2020-09-14] MEDS ORDERED: Z GUARD REMEDY PASTE 57 GM TUBE TOP PRN (20:45)
[2020-09-14] MEDS: DIVALPROEX 500 MG TABLET.DR PO SCH (22:01)
[2020-09-14] MEDS: ATORVASTATIN 20 MG TABLET PO SCH (22:01)
[2020-09-14] MEDS: HEPARIN SODIUM,PORCINE 5,000 UNITS/ML VIAL SQ SCH (22:02)
[2020-09-14] MEDS: IV D5W 1000ML 1,000 ML IV PRN (23:55)
[2020-09-15 00:09] VITALS: BP 121/71
[2020-09-15] MEDS: ACETAMINOPHEN 325 MG TABLET PO PRN ×2 (01:29→23:56)
[2020-09-15 04:17] VITALS: BP 121/76
[2020-09-15] MEDS: LORAZEPAM 1 MG TABLET PO PRN ×2 (05:13→16:01)
--- NOTE | 2020-09-15 05:15 | NUR ---
Patient awake agitated with episodes of getting out of bed,unable to re direct patient.bank runner Dr Paredes made aware with new order given noted and carried out.Ativan 1 mg PO given.1:1 sitter remain at bedside.
[2020-09-15] MEDS: PANTOPRAZOLE SODIUM 40 MG TABLET.DR PO SCH (06:19)
--- NOTE | 2020-09-15 07:30 | NUR ---
Received patient awake on gerichair. On room air. No signs of acute distress. Patient has left FA 22gauge IV access with D5 at 60cc/hr. Patient is on satellite project site monitor with sinus tachycardia. Will continue to monitor.
--- NOTE | 2020-09-15 08:56 | NUR ---
GPS Discharge and Transfer Note: Patient was planned for discharge yesterday 09/14/20 [facility] [place] [address] ([phone]) via Ambulance transportation at 3PM. Horticultural Services Supervisor spoke with ALIYA, Medication Aide ([phone]) at facility and he confirmed that patient has been accepted at their facility. Patient's discharge was canceled due to patient exhibiting high temperature and rapid heart rate. Patient is alert and oriented x2. Patient is not able to plan for self-care at this time but is willing to accept care provided for him at the facility. Patient denies suicidal or homicidal ideation. Patient is aware and agreeable with discharge plans. Patient presents with appropriate mood and congruent affect. Patient will continue to follow-up with Psychiatrist Dr. Joseph and Compound Specialist Dr. Atkins at [facility]. Patients sisterGauri ([phone]) is made aware and is agreeable with discharge plan.
[2020-09-15] MEDS: OLANZAPINE 5 MG TABLET PO SCH ×2 (08:59→16:56)
[2020-09-15] MEDS: DIVALPROEX 500 MG TABLET.DR PO SCH ×2 (08:59→21:32)
[2020-09-15] MEDS: ASPIRIN EC 81 MG TABLET.DR PO SCH (08:59)
[2020-09-15] MEDS: NEPRO (VANILLA) 237 ML CAN PO SCH ×2 (08:59→17:29)
[2020-09-15] MEDS: HEPARIN SODIUM,PORCINE 5,000 UNITS/ML VIAL SQ SCH ×2 (09:00→21:33)
[2020-09-15 12:00] VITALS: BP 130/57
[2020-09-15] MEDS: IV D5W 1000ML 1,000 ML IV PRN (15:07)
[2020-09-15 16:00] VITALS: BP 135/60
[2020-09-15 18:23] LABS: BASOPHILS % (AUTO) 0.5 % (0.0-2.0); EOSINOPHILS # (AUTO) 0.3 K/uL (0.0-0.7); EOSINOPHILS % (AUTO) 4.2 % (0.0-7.0); HEMOGLOBIN 10.1 g/dL (12.5-16.3); LYMPHOCYTES % (AUTO) 30.3 % (20.5-51.5); MEAN CORPUSCULAR HEMOGLOBIN 27.5 uug (23.8-33.4); MEAN CORPUSCULAR HGB CONC 33 g/dL (32.5-36.3); MEAN CORPUSCULAR VOLUME 84.2 fL (73.0-96.2); MONOCYTES # (AUTO) 0.5 K/uL (2.0-10.0); MONOCYTES % (AUTO) 7.7 % (0.0-11.0); NEUTROPHILS # (AUTO) 3.8 K/uL (1.8-8.9); NEUTROPHILS % (AUTO) 57.3 % (38.5-71.5); PLATELET COUNT (AUTO) 215 K/uL (152-348); RED BLOOD CELL COUNT(AUTO) 3.69 MIL/uL (4.06-5.63); WHITE BLOOD COUNT (AUTO) 6.7 K/uL (3.6-10.2)
[2020-09-15 18:28] LABS: CREATININE 1.7 mg/dL (0.6-1.3); MAGNESIUM 2.5 mg/dL (1.8-2.4); PHOSPHOROUS 3.1 mg/dL (2.5-4.9); POTASSIUM 4.3 mmol/L (3.5-5.1)
--- NOTE | 2020-09-15 19:30 | NUR ---
Received pt in bed, awake and verbally responsive, calm, able to make needs known. No s/s of respiratory distress, denies any pain. Sinus tachy on tele at 107/min. IVF infusing well on L FA. Safety measures initiated, sitter at bedside. Call light within reach, will continue to monitor.
[2020-09-15 20:01] VITALS: BP 147/67
[2020-09-15] MEDS: ATORVASTATIN 20 MG TABLET PO SCH (21:32)
[2020-09-16 01:01] VITALS: BP 138/85
[2020-09-16 04:05] VITALS: BP 110/74
--- NOTE | 2020-09-16 06:23 | NUR ---
Pt laying in bed, calm, cooperative with care, able to make needs known. No s/s of respiratory distress, denies any pain. NSR on tele at 98/min. IVF infusing well. Safety measures maintained, sitter at bedside. Call light within reach, all needs attended.
[2020-09-16] MEDS: PANTOPRAZOLE SODIUM 40 MG TABLET.DR PO SCH (06:26)
--- NOTE | 2020-09-16 07:30 | NUR ---
Received patient asleep on bed. On room air. Patient with left forearm #22 gauge with D5 running at 60cc infusing well. Patient on pvc monitor showing NSR. Sitter at bedside. Will continue to monitor.
[2020-09-16] MEDS: IV D5W 1000ML 1,000 ML IV PRN (09:34)
[2020-09-16] MEDS: ASPIRIN EC 81 MG TABLET.DR PO SCH (09:46)
[2020-09-16] MEDS: DIVALPROEX 500 MG TABLET.DR PO SCH ×2 (09:46→20:34)
[2020-09-16] MEDS: NEPRO (VANILLA) 237 ML CAN PO SCH ×2 (09:47→17:31)
[2020-09-16] MEDS: HEPARIN SODIUM,PORCINE 5,000 UNITS/ML VIAL SQ SCH ×2 (09:47→20:42)
[2020-09-16] MEDS: OLANZAPINE 5 MG TABLET PO SCH ×2 (09:47→17:31)
[2020-09-16 11:09] VITALS: BP 128/78
[2020-09-16 16:19] VITALS: BP 113/76
--- NOTE | 2020-09-16 19:00 | NUR ---
PATIENT ALERT, VERBALLY RESPONSIVE, NO SOB NO CHEST PAIN, TELE MONITOR SINUS RHYTHM. PATIENT HAS NO COMPLAIN OF PAIN AT THIS TIME. CONT 1;1 SITTER FOR SAFETY. CONT TO MONITOR.
--- NOTE | 2020-09-16 19:16 | NUR ---
Patient asleep most of the shift. Patient participated with Physical Therapy. Compliant with care and medications. Safety measures observed. Needs met. Will endorse to incoming shift.
[2020-09-16 20:25] VITALS: BP 102/68
[2020-09-16] MEDS: ATORVASTATIN 20 MG TABLET PO SCH (20:34)
[2020-09-17] MEDS: ACETAMINOPHEN 325 MG TABLET PO PRN (00:33)
[2020-09-17] MEDS: IV D5W 1000ML 1,000 ML IV PRN (03:25)
[2020-09-17 06:04] VITALS: BP_SYST 126; BP_DIAS 90; BP_DIAS 91
[2020-09-17] MEDS: PANTOPRAZOLE SODIUM 40 MG TABLET.DR PO SCH (06:32)
[2020-09-17 06:49] LABS: BASOPHILS % (AUTO) 0.5 % (0.0-2.0); EOSINOPHILS # (AUTO) 0.3 K/uL (0.0-0.7); EOSINOPHILS % (AUTO) 3.6 % (0.0-7.0); HEMATOCRIT 25.9 % (36.7-47.1); HEMOGLOBIN 8.7 g/dL (12.5-16.3); LYMPHOCYTES # (AUTO) 2.3 K/uL (20.0-40.0); LYMPHOCYTES % (AUTO) 32.4 % (20.5-51.5); MEAN CORPUSCULAR HEMOGLOBIN 27.9 uug (23.8-33.4); MEAN CORPUSCULAR HGB CONC 33 g/dL (32.5-36.3); MEAN CORPUSCULAR VOLUME 83.5 fL (73.0-96.2); MONOCYTES # (AUTO) 0.7 K/uL (2.0-10.0); MONOCYTES % (AUTO) 10.2 % (0.0-11.0); NEUTROPHILS # (AUTO) 3.8 K/uL (1.8-8.9); NEUTROPHILS % (AUTO) 53.3 % (38.5-71.5); PLATELET COUNT (AUTO) 231 K/uL (152-348); WHITE BLOOD COUNT (AUTO) 7.2 K/uL (3.6-10.2)
[2020-09-17 07:16] LABS: CREATININE 1.4 mg/dL (0.6-1.3); POTASSIUM 4.8 mmol/L (3.5-5.1)
--- NOTE | 2020-09-17 07:30 | NUR ---
Received asleep but easily arousable to tactile and verbal stimuli. No sob noted. IV hydration tolerated. Safety measures maintained. Sitter at bedside. Call light within reach. Will continue to monitor.
[2020-09-17] MEDS: DIVALPROEX 500 MG TABLET.DR PO SCH (09:11)
[2020-09-17] MEDS: ASPIRIN EC 81 MG TABLET.DR PO SCH (09:11)
[2020-09-17] MEDS: OLANZAPINE 5 MG TABLET PO SCH (09:11)
[2020-09-17] MEDS: NEPRO (VANILLA) 237 ML CAN PO SCH (09:34)
[2020-09-17] MEDS: HEPARIN SODIUM,PORCINE 5,000 UNITS/ML VIAL SQ SCH (09:36)
[2020-09-17 11:05] VITALS: BP 100/58
--- NOTE | 2020-09-17 11:43 | NUR ---
RECEIVED ORDER FROM DR. GLEZ THAT MAY DC TO [facility] TODAY. CALLED SNF AND GAVE REPORT TO SAVANNA GAN. SHE ASKED IF WE CAN DO A RAPID COVID TEST PRIOR TO DC. INFORMED CUONG MARINO DUE TO INTERNATIONAL LOGISTICS COORDINATOR IS 1PM AND SHE SAID SHE WILL LET DR. GLEZ KNOW ALSO. WILL CONTINUE TO MONITOR.
--- NOTE | 2020-09-17 13:43 | NUR ---
Patient is picked up by 2 PHOTOGRAPHY EDITOR from [facility]. Alert and answers to name. No episode of agitation this morning. Patient was quiet, watching tv. Ate well. Due meds given and tolerated. No nausea or vomiting noted. No bm this morning. Diaper changed, patient was compliant. Report given to SAVANNA Messer and case consultant. IV on left forearm removed. No bleeding noted. Asked patient if he's in any pain, but patient just shrugged. No facial grimacing noted. Unable to do teaching due to mental status. Discharge instructions given to Ayde CORRALES. All belongings are discharged with the patient. Patient is stable during transfer. Left voicemail for sister Gauri.
--- NOTE | 2020-09-17 17:11 | NUR ---
Called sister Gauri again to let her know that her brother left 2 dollars and if she can pick it up and drop it off to him. Waiting for call back.
== END 2020-09-17 13:30 | DRG 640 ==
LOC: TELE3 16:46
PROVIDERS: ADMIT Family Medicine; ATTEND Family Medicine
DX: E87.0 Hyperosmolality and hypernatremia (principal); N17.0 Acute kidney failure with tubular necrosis; E44.1 Mild protein-calorie malnutrition; F20.0 Paranoid schizophrenia; M62.82 Rhabdomyolysis; D63.8 Anemia in other chronic diseases classified elsewhere; N18.9 Chronic kidney disease, unspecified; Z86.73 Personal history of transient ischemic attack (TIA), and cerebral infarction without residual deficits; E88.09 Other disorders of plasma-protein metabolism, not elsewhere classified; R74.01 Elevation of levels of liver transaminase levels; F29 Unspecified psychosis not due to a substance or known physiological condition; I12.9 Hypertensive chronic kidney disease with stage 1 through stage 4 chronic kidney disease, or unspecified chronic kidney disease; F20.9 Schizophrenia, unspecified; Z91.19 Patient's noncompliance with other medical treatment and regimen; Z86.19 Personal history of other infectious and parasitic diseases; Z68.23 Body mass index [BMI] 23.0-23.9, adult; Z20.822 Contact with and (suspected) exposure to COVID-19
CPT/HCPCS: 36415; 83735; 84100; 85025; A4663; G0378; J1644; J7042; J7070